=== PATIENT | female | born 1965 | race Caucasian/White ===

== ENCOUNTER → 2017-12-03 | Outpatient (CLI) | payer OTHER ==
[~2017-12-03] MED LIST: ACCUNEB SO1.25 MG/1; ADDERALL 10 MG10 MG PO; AMBIEN 5 MG TABL5 MG; APAP500 PO; BACLOFEN 10MG T10 M1 PO; BACLOFEN 10MG T10 MG; BLOOD PRESSURE MED?; CELEXA 20 MG TA20 M1; CELEXA 20 MG TA20 MG PO; CYMBALTA30 MG PO; DIAZEPAM 10 MG10 M1 PO; DILAUDID PO; DURAGESIC TRANSDERM; DURAGESIC1 EAC1 TRANSDERM; DURAGESIC1 EAC3 TRANSDERM; DURAGESIC1 EAC5 TRANSDERM; FENTANYL PA50 MCG/HR TP; FENTANYL PA50 MCG/HR TRANSDERM; FENTANYL PATCH75 MCG TOP; FENTANYL PATCH75 MCG TP; FENTANYL PATCH75 MCG TRANSDERM; Fentanyl Patch TD; GABAPENTIN PO; GABAPENTIN100 MG PO; MIRALAX255 GM PO; MOM; NEURONTIN 300300 M1 PO; NEURONTIN600 MG PO; NEURONTIN800 MG PO; NORVASC 2.5 MG2.5 M1 PO; OTHER MISCELL; OXYCODONE HCL15 MG PO; OXYCONTIN15 MG PO; OXYCONTIN40 MG PO; PAXIL20 MG PO; PERCOCET 10-321 EAC1 PO; PERCOCET 10-321 EACH PO; PERCOCET 5-3251 EACH; PERCOCET 7.5-31 EAC1 PO; PREDNISONE 10 M10 M1 PO; RELAFEN750 MG PO; ROXICODONE15 M1 PO; SKELAXIN 800 M800 M1 PO; STOOL SOFTENER1 EAC2 PO; TEGRETOL XR100 MG PO; TEGRETOL XR200 MG PO; TIZANIDINE HCL4 MG PO; Tegretol PO; VALIUM5 MG PO; WELLBUTRIN 100100 M1 PO; ZANAFLEX2 M1 PO; ZANAFLEX4 MG PO
--- NOTE | 2017-12-05 08:15 | PAINCON ---
[address] [address] PAIN MANAGEMENT CONSULTATION Name: CHERYL DOWNING [id number] Admission: 12/03/17 Attend Phys: Jenn Santana Discharge: Date of : 65 Report #: [id number] THIS REPORT FOR: //name// CC: Conor Taveras The patient is a 52-year-old female, well known to pain clinic, long treated for lumbar radiculopathy, status post decompressive laminectomy (3 total surgeries), axial back pain requiring high risk complex medication management. The patient was last seen in pain clinic 10/08/2017. He returns to pain clinic today, we had a prolonged visit, greater than 25 minutes was spent counseling the patient today. We reviewed last urine drug screen 04/23/2017, which was positive for prescribed medications. She is frustrated today, she notes any activity exacerbates pain, walking for 30 minutes, she has significant pain in her legs and feet, burning dysesthesia in the toes, neuropathic pain component with fairly classic neurogenic claudication, though she does not have any specific focal losses. No saddle anesthesia nor bowel or bladder incontinence, but simply significant neurogenic claudication that interferes with function. She notes the pain seems to be getting worse for the past 3-4 months without antecedent trauma and overuse. She has been on Celexa 20 mg for some time. We talked about rotating back to Cymbalta. Prior, there had been some cognitive impairment with this, but she has been on Celexa for some time, does have chronic increasing pain. She uses fentanyl at 50 mcg q.72 hours and Percocet 10/325 four a day, but she is down from 5 a day (with decrease in functional activity with this). Today, we spent a good deal of time talking about therapeutic options. She is frustrated with some chronic weight issues, difficulty losing weight as activity significantly exacerbates pain, BMI is 40.6 kg/m2. She does not use tobacco products. PHYSICAL EXAMINATION: Shows a 5 feet 6 inches, 252 pounds female, BMI is 40.6 kg/m2. Blood pressure is modestly elevated at 150/89, pulse is 88, respirations are 16. Rises from chair using armrest, modestly antalgic gait. She is weaker in the left leg, objectively to dorsiflexion, lower extremity extension and hip flexion. Positive straight leg raise bilaterally, though this is fairly modest. Diffuse tenderness across the low back. [place] [address] PAIN MANAGEMENT CONSULTATION Name: CHERYL DOWNING Room: [facility]#: [id number] Admission: 12/03/17 Attend Phys: Jenn Santana Discharge: Date of : 65 Report #: [id number] We reviewed the fact that opiate medications are being used to provide analgesia adequate to support activities of daily living, not attempting to achieve a specific pain score on the 0-10 Visual Analog Scale. The current opiate medications are providing sufficient analgesia to allow the patient to participate in activities of daily living. The patient is not exhibiting any aberrant behavior suggestive of drug diversion. The patient is not having any adverse reactions to medications. The patient is not suffering from daytime somnolence or mental acuity changes. The patient is managing opiate-induced constipation with appropriate vknu-faf-mmrwaem agents and dietary considerations. The patient was counseled on concern for caution with operating a motor vehicle while using opiate medications. A physical exam was performed and the patient's functional status was evaluated. All patients with back pain were advised against the bed rest greater than 4 days and were advised to return to normal activities. Pain score assessment was noted and the treatment plan was reviewed with the patient. All current medications, both prescribed and OTC were reviewed and reconciled on the electronic medical record. Tobacco screening was accomplished and smoking cessation was advised when indicated. BMI was noted and diet/exercise modification was recommended for all patients following outside normal parameters. I reviewed with the patient today their responsibilities to safeguard prescription medications, reviewed their responsibility to utilize medications only as prescribed by the physician. They are to seek and receive pain medications only from 1 physician group ( [facility]). They are to use 1 pharmacy and keep the clinic informed if they change pharmacies. Their responsibilities include making followup visits in a timely fashion and to avoid abrupt discontinuation of medication usage. Their responsibilities further include bringing their medications (bottles from the pharmacy with residual pills) to the visit for possible confirmation of pill counts and the patient understands it is their responsibility to submit to random drug screens to ensure both that the medications prescribed are present, and that no other controlled substances are present. All prescriptions provided today were generated electronically. ASSESSMENT: Symptomatic lumbar radiculopathy status post multiple decompressive laminectomies, axial back pain requiring high risk complex medication management. RECOMMENDATION: 1. We will try rotating Celexa to Cymbalta 30 mg 1 a day (Celexa 20 mg). 2. Increase Percocet back to 5 a day recognized that this is a supratherapeutic opiate load by definition in conjunction with her Duragesic 50 mcg q.48 hours. 3. We talked again about spinal cord stimulator as possible therapeutic option. [address] [place] [address] PAIN MANAGEMENT CONSULTATION Name: CHERYL DOWNING Room: [facility]#: [id number] Admission: 12/03/17 Attend Phys: Jenn Santana Discharge: Date of : 65 Report #: [id number] The patient is a little hesitant to move forward with this, states she has heard of people who have had stimulators and has read online that some folks do not find significant improvement in function. I assured her that if we did a trial, we would try and use only objective date, i.e., improvement in functional status, which tends to be associated more closely with long-term efficacy. For now, I simply made the aforementioned 2 medication changes. Discharged in good and stable condition after a 25 plus minute visit. <ELECTRONICALLY SIGNED> By: Shelton Taveras DO 12/05/17 0815 0735 [id number] Taveras DO /nt
== END ==
LOC: M.PC 02:01
DX: M54.16 Radiculopathy, lumbar region (principal); M54.89 Other dorsalgia; Z98.890 Other specified postprocedural states; Z79.899 Other long term (current) drug therapy

== ENCOUNTER → 2018-01-28 | Outpatient (CLI) | payer OTHER ==
--- NOTE | 2018-01-29 10:21 | PAINCON ---
[address] [address] PAIN MANAGEMENT CONSULTATION Name: CHERYL DOWNING Room: [facility]#: [id number] Admission: 01/28/18 Attend Phys: Jenn Santana Discharge: Date of : 65 Report #: [id number] THIS REPORT FOR: //name// CC: Conor Taveras DATE OF SERVICE: 01/28/2018 The patient is a 52-year-old female being treated for lumbar radiculopathy, status post decompressive laminectomy, neuropathic pain requiring complex medication management. Last seen in pain clinic 12/03/2017. The patient was continued on baseline medication including Duragesic 50 mcg q. 48 hours, Percocet 10/325 increased from 4 to 5 a day due to decreasing functional status when we lowered her Percocet to 4 a day. We rotated from Celebrex to Cymbalta 30 mg a day. The patient has had 3 back surgeries with ongoing radicular pain. She notes with current medication, her pain is a 4 on a VAS, pain is primarily low back, both legs with burning dysesthesia in her feet. PHYSICAL EXAMINATION: Shows 52-year-old female, moderately obese, 5 feet 6 inches, weight is 253.8 pounds, BMI is 41.3 kilograms per meter squared. Blood pressure 112/51, pulse 93, respirations 16. She rises from chair using armrest, modestly antalgic gait, diffuse tenderness across the low back. She notes if she crosses her legs, she has ongoing burning dysesthesia in her feet. We discussed spinal cord stimulator at last visit and we reviewed this option again today. Buccal drug swab at last visit was positive for prescribed medications with the caveat that it did not show fentanyl. At that time, I had noted the patient was wearing her Duragesic patch and again today, she is wearing a Duragesic patch. I have low index of suspicion that she has been diverting her agents. Today, we elected to simply continue current medication unchanged, we will repeat a buccal swab at next visit. If negative, we will get a urine screen as backup as well. We reviewed the fact that opiate medications are being used to provide analgesia adequate to support activities of daily living, not attempting to achieve a specific pain score on the 0-10 Visual Analog Scale. The current opiate medications are providing sufficient analgesia to allow the patient to participate in activities of daily living. The patient is not exhibiting any aberrant behavior suggestive of drug diversion. The patient is not having any adverse reactions to medications. The patient [place] [address] PAIN MANAGEMENT CONSULTATION Name: CHERYL DOWNING Room: [facility]#: [id number] Admission: 01/28/18 Attend Phys: Jenn Santana Discharge: Date of : 65 Report #: [id number] somnolence or mental acuity changes. The patient is managing opiate-induced constipation with appropriate ugyw-tay-xpftfik agents and dietary considerations. The patient was counseled on concern for caution with operating a motor vehicle while using opiate medications. A physical exam was performed and the patient's functional status was evaluated. All patients with back pain were advised against the bed rest greater than 4 days and were advised to return to normal activities. Pain score assessment was noted and the treatment plan was reviewed with the patient. All current medications, both prescribed and OTC were reviewed and reconciled on the electronic medical record. Tobacco screening was accomplished and smoking cessation was advised when indicated. BMI was noted and diet/exercise modification was recommended for all patients following outside normal parameters. I reviewed with the patient today their responsibilities to safeguard prescription medications, reviewed their responsibility to utilize medications only as prescribed by the physician. They are to seek and receive pain medications only from 1 physician group ( [facility]). They are to use 1 pharmacy and keep the clinic informed if they change pharmacies. Their responsibilities include making followup visits in a timely fashion and to avoid abrupt discontinuation of medication usage. Their responsibilities further include bringing their medications (bottles from the pharmacy with residual pills) to the visit for possible confirmation of pill counts and the patient understands it is their responsibility to submit to random drug screens to ensure both that the medications prescribed are present, and that no other controlled substances are present. All prescriptions provided today were generated electronically. I have taken the liberty of writing for 2 months of current medication. Discharged in good and stable condition. <ELECTRONICALLY SIGNED> By: Shelton Taveras DO 01/29/18 1021 1210 [id number] Taveras DO /nt
== END ==
LOC: M.PC 03:35
DX: M54.16 Radiculopathy, lumbar region (principal); M79.2 Neuralgia and neuritis, unspecified; Z98.890 Other specified postprocedural states; Z79.899 Other long term (current) drug therapy

== ENCOUNTER → 2018-03-25 | Outpatient (CLI) | payer OTHER ==
--- NOTE | 2018-03-26 09:37 | PAINCON ---
[facility] [address] [place] [address] PAIN MANAGEMENT CONSULTATION Name: CHERYL DOWNING Room: [facility]#: [id number] Admission: 03/25/18 Attend Phys: Jenn Santana Discharge: Date of : 65 Report #: [id number] THIS REPORT FOR: //name// CC: Conor Taveras DATE OF SERVICE: 03/25/2018 The patient is a very pleasant 52-year-old female, long known to the pain clinic, being treated for symptomatic lumbar radiculopathy, status post 3 back surgeries, neuropathic pain requiring complex medication management. Last seen in pain clinic 01/28/2018. We have weaned down to Duragesic 50 mcg q. 48 hours, Percocet 10/325 up to 4 a day. Does use co-analgesics including Tegretol 200 mg b.i.d., gabapentin 800 mg t.i.d., Adderall 10 mg b.i.d., Valium 5 mg at bedtime for muscle spasm, Cymbalta 30 mg daily for chronic pain and anxiety. She returns to pain clinic today. We had a prolonged visit, greater than 25 minutes was spent counseling the patient. She has ongoing pain, left lower extremity interferes with walking and function. Pain is in the left sciatic distribution. She is not really a surgical candidate at this point. Does have ongoing neurogenic claudication symptoms; however, that impacts function. She notes her weight has continued to increase as she is very sedentary. She relates sedentary activities simply to pain that significantly interferes with function. She rates her pain a 5 on a VAS, but notes it gets up to 7. PHYSICAL EXAMINATION: Relatively unchanged. A 5 feet 6 inches female, weight is 259 pounds. Blood pressure 145/89, pulse 97, respirations 16. Rises from chair using armrest. Antalgic gait favoring the left leg and ankle. Positive straight leg raise on the left, though strength is actually moderately preserved. Diffuse tenderness across the low back. No discrete trigger points are noted. We reviewed the fact that opiate medications are being used to provide analgesia adequate to support activities of daily living, not attempting to achieve a specific pain score on the 0-10 Visual Analog Scale. The current opiate medications are providing sufficient analgesia to allow the patient to participate in activities of daily living. The patient is not exhibiting any aberrant behavior suggestive of drug diversion. The patient is not having any adverse reactions to medications. The patient is not suffering from daytime somnolence or mental acuity changes. The patient is managing opiate-induced constipation with appropriate dooo-lni-osvcpht agents and dietary considerations. The patient was counseled on concern for caution with operating a motor vehicle while using opiate medications. A physical exam was performed and the patient's functional status was evaluated. All patients with back pain were advised against the bed rest greater than 4 days and were advised to return to normal activities. [place] [address] PAIN MANAGEMENT CONSULTATION Name: CHERYL DOWNING Room: [facility]#: [id number] Admission: 03/25/18 Attend Phys: Jenn Santana Discharge: Date of : 65 Report #: [id number] noted and the treatment plan was reviewed with the patient. All current medications, both prescribed and OTC were reviewed and reconciled on the electronic medical record. Tobacco screening was accomplished and smoking cessation was advised when indicated. BMI was noted and diet/exercise modification was recommended for all patients following outside normal parameters. I reviewed with the patient today their responsibilities to safeguard prescription medications, reviewed their responsibility to utilize medications only as prescribed by the physician. They are to seek and receive pain medications only from 1 physician group ( [facility]). They are to use 1 pharmacy and keep the clinic informed if they change pharmacies. Their responsibilities include making followup visits in a timely fashion and to avoid abrupt discontinuation of medication usage. Their responsibilities further include bringing their medications (bottles from the pharmacy with residual pills) to the visit for possible confirmation of pill counts and the patient understands it is their responsibility to submit to random drug screens to ensure both that the medications prescribed are present, and that no other controlled substances are present. All prescriptions provided today were generated electronically. We had a long discussion with the patient today about therapeutic options. At this point, I think a spinal cord stimulator is the best option to help improve function and wean the patient off of analgesics. I discussed high frequency spinal cord stimulator with the patient at length today. She is desirous of moving forward with a spinal cord stimulator trial at earliest possible date. RECOMMENDATIONS: 1. Renew current medication including Duragesic 50 mcg q. 48 hours. We will decrease Percocet from 10/325 to 7.5/325 four a day. We recognized that this is a relatively small percentage decrease in her overall opiate load, continue co-analgesics unchanged. 2. Buccal drug swab today. 3. No aberrant behavior suggestive for drug diversion, simply complying with opiate consent to treat contract. 4. The patient was given spinal cord stimulator information for high frequency Nevro stimulator. She is given contact information for psychologist as required by most third [employer] payers. Once we receive psychological evaluation, we will move forward with authorizing spinal cord stimulator trial at earliest possible date. Discharged in good and stable condition after prolonged visit today. <ELECTRONICALLY SIGNED> By: Shelton Taveras DO 03/26/18 0937 1526 [id number] Taveras DO /nt
== END ==
LOC: M.PC 04:35
DX: M54.16 Radiculopathy, lumbar region (principal); Z79.899 Other long term (current) drug therapy

== ENCOUNTER → 2018-04-22 | Outpatient (CLI) | payer OTHER ==
--- NOTE | 2018-04-23 07:50 | PAINCON ---
[address] [address] PAIN MANAGEMENT CONSULTATION Name: CHERYL DOWNING Room: [facility]#: [id number] Admission: 04/22/18 Attend Phys: Jenn Santana Discharge: Date of : 65 Report #: [id number] THIS REPORT FOR: //name// CC: Fransico Taveras The patient is a 52-year-old female, long known to pain clinic, typically treated for lumbar radiculopathy, status post decompressive laminectomy; chronic pain syndrome requiring complex medication management. The patient had 3 surgeries in short order several years ago with ongoing neuropathic pain. She has been managed with a much higher dose opiates, weaned down to Duragesic 50 mcg q.72 hours; we dropped from oxycodone 15 to Percocet 10 in the last visit from Percocet 10 to Percocet 7.5/325 four a day. Continued gabapentin 800 mg t.i.d., Cymbalta 30 mg daily, diazepam 5 mg at bedtime for spasm and anxiety along with Adderall 10 mg b.i.d. for medication-induced hypersomnolence. She returns to pain clinic today, quite frustrated, rating her pain a 4 on a VAS, but notes her functional status is significantly decreased with the last decrease in her opiate from 10 mg oxycodone to 7.5 oxycodone (Percocet 7.5/325). She has ongoing pain, paresthesia in the left foot, hyperparesthesia with a burning electric component. PHYSICAL EXAMINATION: Shows diminished strength in the left leg, hip flexion, extension and dorsiflexion, paresthesia and hyperpathia in an L4 distribution. Some hyperpathia and allodynia in the anterior zimmerman and foot. Concern for neuropathic pain component (CRPS?) and lumbar radicular symptoms status post decompressive laminectomy and concern for arachnoiditis after multiple surgeries (3) within 1 year. I discussed at last visit spinal cord stimulator as a possible therapeutic option. Again, I think this is the most likely therapeutic intervention, which may give the patient some improved functional status. She was seen for a prolonged visit today from 8:30-8:55, greater than 50% of the 25-minute visit was spent counseling the patient. We discussed spinal cord stimulator as a possible therapeutic option. Since I am leaving the practice, I will have her follow up with Dr. Adonis Taveras regarding this therapeutic modality. Today, we I did elect to return to Percocet 10/325 four a day along with her Duragesic 50 mcg q.48 hours. Last random drug screen 03/25/2018, in the last visit was positive for prescribed medications and no others. We reviewed the fact that opiate medications are being used [place] [address] PAIN MANAGEMENT CONSULTATION Name: CHERYL DOWNING Room: [facility]#: [id number] Admission: 04/22/18 Attend Phys: Jenn Santana Discharge: Date of : 65 Report #: [id number] adequate to support activities of daily living, not attempting to achieve a specific pain score on the 0-10 Visual Analog Scale. The current opiate medications are providing sufficient analgesia to allow the patient to participate in activities of daily living. The patient is not exhibiting any aberrant behavior suggestive of drug diversion. The patient is not having any adverse reactions to medications. The patient is not suffering from daytime somnolence or mental acuity changes. The patient is managing opiate-induced constipation with appropriate hicq-iii-hoogxky agents and dietary considerations. The patient was counseled on concern for caution with operating a motor vehicle while using opiate medications. A physical exam was performed and the patient's functional status was evaluated. All patients with back pain were advised against the bed rest greater than 4 days and were advised to return to normal activities. Pain score assessment was noted and the treatment plan was reviewed with the patient. All current medications, both prescribed and OTC were reviewed and reconciled on the electronic medical record. Tobacco screening was accomplished and smoking cessation was advised when indicated. BMI was noted and diet/exercise modification was recommended for all patients following outside normal parameters. I reviewed with the patient today their responsibilities to safeguard prescription medications, reviewed their responsibility to utilize medications only as prescribed by the physician. They are to seek and receive pain medications only from 1 physician group ( [facility]). They are to use 1 pharmacy and keep the clinic informed if they change pharmacies. Their responsibilities include making followup visits in a timely fashion and to avoid abrupt discontinuation of medication usage. Their responsibilities further include bringing their medications (bottles from the pharmacy with residual pills) to the visit for possible confirmation of pill counts and the patient understands it is their responsibility to submit to random drug screens to ensure both that the medications prescribed are present, and that no other controlled substances are present. All prescriptions provided today were generated electronically. Follow up in 2 months for reevaluation. We will have her follow up with Dr. Manjinder Palma or Dr. Adonis Taveras depending on availability. She understands that she would have to see Dr Ruchi Taveras @ [facility]; he would be the physician to follow up with SCS trial. <ELECTRONICALLY SIGNED> By: Shelton Taveras DO 04/23/18 0750 1437 1943[facility] Taveras DO /janett
== END ==
LOC: M.PC 03:55
DX: M54.16 Radiculopathy, lumbar region (principal); G89.4 Chronic pain syndrome; R20.2 Paresthesia of skin; Z79.899 Other long term (current) drug therapy

== ENCOUNTER → 2018-07-02 | Outpatient (CLI) | payer OTHER ==
--- NOTE | 2018-07-17 08:37 | PAINCON ---
[address] [address] PAIN MANAGEMENT CONSULTATION Name: CHERYL DOWNING [id number] Admission: 07/02/18 Attend Phys: Gee Palma MD Discharge: Date of : 65 Report #: [id number] THIS REPORT FOR: //name// CC: Fransico Palma DATE OF SERVICE: 07/02/2018 CHIEF COMPLAINT: Low back, leg and foot pain. HISTORY OF PRESENT ILLNESS: The patient is a 52-year-old female who has been followed in the pain clinic since [address] Shelton Taveras. This is my first visit with the patient. She has returned to the Pain Clinic for renewal of her medications. She finds that fentanyl is helpful as well as Percocet for breakthrough pain. She has undergone epidural steroid injections for sympathetic lumbar radiculopathy in the past. She is also status post decompression with laminectomy and fusion. Her pain continues to be quite problematic. She has considered the options of dorsal column stimulation. At this juncture, her 's health has declined. Economically, she does not feel that she is able to go forward with a trial and placement of an epidural over the spinal cord stimulator. She rates her pain as 4/10 at this juncture. ALLERGIES: PENICILLIN. CURRENT MEDICATIONS: Tylenol Extra Strength 2 tablets, albuterol 2 puffs p.r.n., Adderall 10 mg b.i.d., Tegretol-XR 200 mg b.i.d., Celexa 20 mg, Valium 5 mg p.r.n. spasms, Cymbalta 30 mg, fentanyl patch 50 mcg q. 48 hours, Neurontin 800 mg q. 8 hours, oxycodone 10/325 one p.o. q. 4 hours. PAST MEDICAL HISTORY: Asthma, joint disease/arthritis, hypertension. PAST SURGICAL HISTORY: Cholecystectomy, appendectomy, tonsils and adenoids, back surgery in 2010 and ankle surgery. LABORATORY DATA: No new values are available at the time of her interview. PAIN CLINIC ASSESSMENT: 1. The patient does have some arthritic changes in the lower portion of her back and is status post surgery for back pain. 2. Height 5 feet 6 inches, weight 254 pounds, BMI is 41. 3. Vital Signs: Blood pressure 152/106, heart rate 93, respiratory rate 16, room air saturation is 98%, temperature 98.5. 4. Pain intensity: 4/10. 5. Fall risk. The patient has not fallen in the last 3 months. 6. Blood thinning medication. The patient is not on a blood thinner. 7. History of hypertension. The patient is not being [place] [address] PAIN MANAGEMENT CONSULTATION Name: CHERYL DOWNING Rajani Room: [facility]#: [id number] Admission: 07/02/18 Attend Phys: Gee Palma MD Discharge: Date of : 65 Report #: [id number] 8. Opioid therapy. The patient received her opioid medications from one source, the Pain Clinic. 9. Risk assessment tool. 10. Functional assessment tool. 11. Recreational drug use. The patient denies use of recreational drugs. 12. Tobacco: The patient denies use of tobacco. 13. Alcohol: The patient denies use of alcohol. PHYSICAL EXAMINATION: GENERAL: The patient is a well-developed white female. Slightly she is obese. Alert and oriented x 3. Affect is appropriate. Speech is fluent. HEENT: Normocephalic, atraumatic. Extraocular eye muscles intact. Sclerae nonicteric. Mucous membranes are moist. Hearing is within normal limits. NECK: Without adenopathy or JVD. Upper extremity muscle strength is judged to be 5/5 for the major muscle groups in the upper extremity. HEART: Regular rate. ABDOMEN: Protuberant without pain, low back area. The patient complains of pain and discomfort in the lower portion of her back with pain radiating down into her left sciatic area. States that she finds that sometimes difficult to stand notes that walking, standing, climbing stairs, lifting and bending are problematic. IMPRESSION: 1. History of lumbar radiculopathy, status post decompression laminectomy and fusion. 2. Hypertension. 3. Asthma. RECOMMENDATIONS: We discussed treatment options with the patient. The patient states that she had had a conversation with Nitin in regards to possibility of moving forward with a spinal cord stimulator. At this juncture, her has been found to have lupus. This is her current major problem. States that she will have to wait till a future date to consider spinal cord stimulation. At this juncture, she would like to just continue with her current medications. She would like to have them refilled. She is having no complications with them. She is aware that opioids are in the news and media. Keeps her medications in a guarded area. She is aware that addiction and can occur as well as decreased effectiveness of these medications as a result of tolerance. A script for her medications have been rewritten. She will follow up in the near future. Hopefully, her continues to improve in his health. We would like to thank you for letting us participate in her care. We hope she continues to improve. <ELECTRONICALLY SIGNED> By: Gee Palma MD 07/17/18 0837 [id number]. Manjinder Palma MD /nt
== END ==
LOC: M.PC 02:14
DX: M54.16 Radiculopathy, lumbar region (principal); I10 Essential (primary) hypertension; J45.909 Unspecified asthma, uncomplicated

== ENCOUNTER → 2018-08-27 | Outpatient (CLI) | payer OTHER ==
--- NOTE | 2018-09-14 10:00 | PAINCON ---
[address] [address] PAIN MANAGEMENT CONSULTATION Name: CHERYL DOWNING [facility] [id number] Admission: 08/27/18 Attend Phys: Gee Palma MD Discharge: Date of : 65 Report #: [id number] THIS REPORT FOR: //name// CC: Fransico Palma DATE OF SERVICE: 08/27/2018 FOLLOWUP HISTORY: Here for medication renewal. FOLLOWUP: The patient is a 52-year-old female who has been followed in the pain clinic. She has low back pain and has left leg pain. She states that she continues to have some sciatic nerve irritation symptomatology. Notes pain that radiates down into her left leg. Crossing her left leg at the ankles can exacerbate pain and cause pain to radiate down into the L5-S1 distribution on the left side. She has found that her current medication seems to work reasonably well. She has undergone epidural steroid injections in the past. She has undergone laminectomy with fusion. In spite of these past treatments she continues to have pain and discomfort. She had been given the opportunity to consider a dorsal column stimulator. She has declined that procedure at this juncture. She rates her pain as 6/10 today, it usually is about 4. ALLERGIES: PENICILLIN. MEDICATIONS: Tylenol Extra Strength 2 tablets, albuterol puffs 2 p.r.n., Adderall 10 mg b.i.d., Tegretol-XR 200 mg b.i.d., Celexa 20 mg, Valium 5 mg p.r.n. spasms, Cymbalta 30 mg, fentanyl patch 50 mcg q.48 hours, Neurontin 800 mg t.i.d., oxycodone 10/325 one p.o. q. 4 hours p.r.n. PAIN CLINIC ASSESSMENT/PQR: 1. The patient is not being treated for osteoarthritis or rheumatoid arthritis. 2. Height 5 feet 6 inches, weight 256 pounds and BMI is 41. 3. Vital signs: Blood pressure 151/92, heart rate 88, respiratory rate 16, room air saturation is 98%, temperature is 98.2 and pain score 6/10, usually in 4. 4. Fall risk: The patient has not fallen in the last 3 months. 5. Blood thinner. The patient is not on blood thinning medication. 6. Hypertension. The patient has not been treated for hypertension. 7. Opioid therapy greater than 6 weeks. The patient has receiving her opioid medication to one source is the pain clinic. 8. Risk assessment tool. 9. Functional assessment tool. 10. Recurrent recreational drug use. The patient denies use of recreational drugs. 11. Tobacco: The patient denies use of tobacco. 12. Alcohol: The [place] [address] PAIN MANAGEMENT CONSULTATION Name: CHERYL DOWNING Room: [facility]#: [id number] Admission: 08/27/18 Attend Phys: Gee Palma MD Discharge: Date of : 65 Report #: [id number] PHYSICAL EXAMINATION: GENERAL: The patient is a well-developed, well-nourished white female, appears her stated age. She is alert and oriented x 3. Affect is appropriate. She is slightly obese. Speech is fluent. HEENT: Normocephalic, atraumatic. Extraocular eye muscles intact. Sclerae nonicteric. Mucous membranes are moist. Hearing is within normal limits. NECK: Without adenopathy or JVD. Upper extremity muscle strength is judged to be 5/5 for the major muscle groups. HEART: Regular rate. S1, S2. LUNGS: Clear to auscultation without rales or rhonchi. ABDOMEN: Protuberant without pain. Bowel sounds positive. The patient has pain and discomfort with crossing her left leg over the right leg with pain radiating down the L5-S1 nerve dermatomal distribution. She notes some increased pain with walking, standing, climbing stairs, lifting and bending. She also has some pain in her feet bilaterally. IMPRESSION: 1. History of lumbar radiculopathy, status post decompression laminectomy with fusion. 2. Hypertension. 3. Asthma. RECOMMENDATIONS: We discussed treatment options with the patient. We will continue with her current medical regimen. She feels that her medications are helpful. She is not having any side effects. She is able to think clearly. She feels that her medications and able to engage in activities of daily living, she would not be able to without them. Notes greater than 50% improvement with use of these medications. The patient does not have any problems with the medications. She is aware that opioid medications can cause dependence. She is aware that chronic use of medication for prolonged period of time can cause decreased efficacy from the medication secondary to tolerance. States she keeps her medication in a guarded area. She will follow up in the future as needed. We would like to thank you for letting us participate in her care. We hope she continues to improve. <ELECTRONICALLY SIGNED> By: Gee Palma MD 09/14/18 [id number]. Manjinder Palma MD /nt
== END ==
LOC: M.PC 06-16 03:28
DX: M54.16 Radiculopathy, lumbar region (principal); I10 Essential (primary) hypertension; J45.909 Unspecified asthma, uncomplicated; Z79.899 Other long term (current) drug therapy

== ENCOUNTER → 2018-10-20 | Outpatient (CLI) | payer OTHER ==
--- NOTE | ~2018-10-20 | PAINCON ---
[address] [address] PAIN MANAGEMENT CONSULTATION Name: CHERYL DOWNING Room: [facility]#: [id number] Admission: 10/20/18 Attend Phys: Gee Palma MD Discharge: Date of : 65 Report #: [id number] THIS REPORT FOR: //name// CC: Fransico Palma DATE OF SERVICE: 10/20/2018 HISTORY: Low back pain, here for medications. HISTORY OF PRESENT ILLNESS: The patient is a 52-year-old female who has been followed in the pain clinic because of chronic pain involving her low back and her legs. States that she has continued to have some pain and discomfort in the area of the sciatic nerve with irritation. Notes that she is having pain and discomfort, which is radiating down into her legs. Pain has been exacerbate were exacerbated by activity. She has been cleaning and raking her yard. As a result of this, she has noticed an increase in her pain and discomfort and rates it as a 7/10. Notes pain in her calf muscles. She is experiencing muscle spasms as well. As you recall, she has undergone laminectomy with fusion. She has been given the opportunity to consider a dorsal column stimulator. She has declined the procedure at this juncture. Rates her pain as 7 oftentimes and it is usually at about the level of 4. She also noted change in the pain because of the weather. The weather has changed. It is about 24 degrees in the morning. This has had some effect on her joint pain and discomfort as well. ALLERGIES: PENICILLIN. MEDICATIONS: Tylenol Extra Strength 2 tablets, albuterol 2 puffs p.r.n., Adderall 10 mg b.i.d., Tegretol XR 200 mg b.i.d., Celexa 20 mg, Valium 5 mg p.r.n. spasms, Cymbalta 30 mg, fentanyl patch 50 mcg q. 48 hours, Neurontin 800 mg t.i.d., oxycodone 10/325 one p.o. q. 4 hours p.r.n. PAIN CLINIC ASSESSMENT/PQRS: The patient is not being treated for osteoarthritis or rheumatoid arthritis. 1. Height 5 feet 6 inches, weight 256 pounds, BMI is 41. 2. Vital signs: Blood pressure 138/93, heart rate 96, respiratory rate 16, room air saturation 96%, temperature 97.5. 3. Pain intensity 10. 4. Fall risk. The patient has not fallen in the last 3 months. 5. Blood thinner. The patient is not on a blood thinning medication. 6. Hypertension. The patient is not being treated for hypertension. 7. Opioids greater than 6 weeks. The patient receives her medications from one source, the Pain Clinic. 8. Risk assessment tool, low for opioid use. 9. Functional assessment tool. 10. Recreational drug use: [place] [address] PAIN MANAGEMENT CONSULTATION Name: VICTOR HUGO DOWNINGIRIS eGrard Room: [facility]#: [id number] Admission: 10/20/18 Attend Phys: Gee Palma MD Discharge: Date of : 65 Report #: [id number] 11. Tobacco: The patient denies use of alcoholic beverages. PHYSICAL EXAMINATION: GENERAL: The patient is a well-developed, well-nourished white female. Appears her stated age. She is alert and oriented x 3. She does seem somewhat disappointed because of her continued pain and discomfort. She is obese. Speech is fluent. HEENT: Normocephalic, atraumatic. Extraocular muscles intact. Sclerae nonicteric. Mucous membranes are moist. Hearing is within normal limits. NECK: Without adenopathy or JVD. Upper extremity muscle strength is judged to be 5/5 for the major muscle groups. HEART: Regular rate. S1, S2. LUNGS: Clear to auscultation without rhonchi or rales. ABDOMEN: Protuberant without pain. Bowel sounds present. The patient has some pain and discomfort in the lower portion of her back with pain radiating down into her left leg as well as in the right leg in the L5-S1 dermatomal distribution. Notes some increased pain with walking, standing, climbing, lifting, bending and had pain in her feet bilaterally with some complaints of muscle spasm. IMPRESSION: 1. History of lumbar radiculopathy status post decompressive laminectomy with fusion. 2. Offered dorsal column stimulator. 3. Hypertension. 4. Asthma. RECOMMENDATIONS: We discussed treatment with the patient. We will continue with her current medications. She feels that her medications are helpful. Continues to have some pain in her back yesterday while doing yard work. Notes some difficulty walking, some weakness, some cramping which have become more frequent. The weather has changed and has caused some problems. Overall, she is about 40% improved with use of her medication at this point. She feels that the medications are still beneficial and would like to continue with their use. She is aware that opioid medications can cause addiction as well as become less effective over time as a result of tolerance. She is aware that 72,000 people last year as a result of use of overdose of medications. A 500,000 people have in the year 1999. She keeps her medications in a guarded area. She would like to continue with her medications. She finds that they are overall helpful. We would like to thank you for letting us participate in her care. We hope she continues to improve. By: [id number]. Manjinder Palma MD /nt
== END ==
LOC: M.PC 04:50
DX: M54.16 Radiculopathy, lumbar region (principal); I10 Essential (primary) hypertension; J45.909 Unspecified asthma, uncomplicated; Z98.1 Arthrodesis status

== ENCOUNTER → 2018-12-15 | Outpatient (CLI) | payer OTHER ==
--- NOTE | ~2018-12-15 | PAINCON ---
[address] [address] PAIN MANAGEMENT CONSULTATION Name: CHERYL DOWNING Room: [facility]#: [id number] Admission: 12/15/18 Attend Phys: Gee Palma MD Discharge: Date of : 65 Report #: [id number] THIS REPORT FOR: //name// CC: Fransico Palma DATE OF SERVICE: 12/15/2018 CHIEF COMPLAINT: Here for medication renewal. FOLLOWUP HISTORY: The patient is a 53-year-old female who has been followed in the Pain Clinic. She suffers from chronic pain involving her low back. She has had low back pain for years. She has had no new changes at this juncture. She does note that the changes in the weather, which has become cold, have affected her pain. She feels that cold, walking, sitting, standing, climbing stairs, lifting and bending are problematic. She does try a number of modalities to help with the pain, which include medications, heat, cold and rest. She continues to have pain in the area of her sciatic nerve, radiates down into both legs. She continues to have some muscle spasms. As you may recall, she has undergone a laminectomy and has had a fusion in her back. Consideration has been extended to her for a dorsal column stimulator; at this juncture, she declines. ALLERGIES: PENICILLIN. CURRENT MEDICATIONS: Tylenol Extra Strength 2 tablets, albuterol 2 puffs p.r.n., Adderall 10 mg b.i.d., Tegretol-XR 200 mg b.i.d., Celexa 20 mg, Valium 5 mg for spasms, Cymbalta 30 mg, fentanyl patch 50 mcg q. 48 hours, Neurontin 800 mg t.i.d., oxycodone 10/325 one p.o. q. 4 hours p.r.n. PAIN CLINIC ASSESSMENT AND PQRS: 1. The patient is not being treated for osteoarthritis or rheumatoid arthritis. 2. Height 5 feet 6 inches, weight 259 pounds, BMI is 42. 3. Vital signs: Blood pressure 147/96, heart rate 93, respiratory rate 16, room air saturation 95%, temperature 98.0. 4. Pain intensity: 4/10. 5. Fall history: The patient has not fallen in the last 3 months. 6. Blood thinner: The patient is not on a blood thinning medication. 7. Hypertension: The patient is not being treated for hypertension. 8. Opioids greater than 6 weeks: The patient receives her medications from one source from the Pain Clinic. 9. Risk assessment tool: Low for opioid use. 10. Functional assessment tool. 11. Recreational drug use: The patient denies use of recreational drugs. 12. Tobacco: The patient denies use [place] [address] PAIN MANAGEMENT CONSULTATION Name: CHERYL DOWNING Room: [facility]#: [id number] Admission: 12/15/18 Attend Phys: Gee Palma MD Discharge: Date of : 65 Report #: [id number] PHYSICAL EXAMINATION: GENERAL: The patient is a well-developed, well-nourished, white female. She appears her stated age. She is alert and oriented x 3. She is slightly obese. Speech is fluent. HEENT: Normocephalic, atraumatic. Extraocular eye muscles intact. Sclerae nonicteric. Mucous membranes are moist. Hearing is within normal limits. NECK: Without adenopathy or JVD. HEART: Regular rate, S1 and S2. LUNGS: Clear to auscultation without rhonchi or rales. ABDOMEN: Protuberant without pain. Bowel sounds present. MUSCULOSKELETAL: Upper extremity muscle strength is judged to be 5/5 for the major muscle groups. Some pain in the lower portion of her back, which radiates down into her left leg as well as into the right leg at the L5 dermatomal distribution. She complains of some muscle spasms. IMPRESSION: 1. History of lumbar radiculopathy, status post decompressive laminectomy with fusion. Offer remains for consideration of a dorsal column stimulator. 2. Hypertension. 3. Asthma. RECOMMENDATIONS: We discussed treatment options with the patient. The risk and benefits of opioid use were discussed. Possible addiction associated with opioid/narcotic use was discussed. We explained to the patient that effectiveness of opioids can start to wane over a period of time secondary to tolerance. Overall, she feels that things are going reasonably well and would like to continue with her medications. A script for her medications has been rewritten. We would like to thank you for letting us participate in her care. We hope she continues to improve. By: [id number]. Manjinder Palma MD /janett
== END ==
LOC: M.PC 08:00
DX: M54.16 Radiculopathy, lumbar region (principal); J45.909 Unspecified asthma, uncomplicated; I10 Essential (primary) hypertension; Z79.899 Other long term (current) drug therapy

== ENCOUNTER → 2019-02-09 | Outpatient (CLI) | payer OTHER ==
--- NOTE | ~2019-02-09 | PAINCON ---
[address] [address] PAIN MANAGEMENT CONSULTATION Name: CHERYL DOWNING [id number] Admission: 02/09/19 Attend Phys: Gee Palma MD Discharge: Date of : 65 Report #: [id number] THIS REPORT FOR: //name// CC: Fransico Palma DATE OF SERVICE: 02/09/2019 CHIEF COMPLAINT: Here for medication renewal. HISTORY: The patient is a 53-year-old female who has been followed in the Pain Clinic. As you recall, she suffers from chronic back pain. She has had three back surgeries. She has had back pain for a number of years. At this juncture, she feels that her medications are helpful. It was warm her yesterday. She elected to do some activities out in the yard. Has noticed an increase in her back pain. Rates it as a 5/10. It usually is about 4/10. Denied any complications. Has not fallen since we saw her last. Feels that her medications are working reasonably well. She has returned today with a desire to have her medication renewal. Has pain in the sciatic nerve area and it radiates down into both legs. Has problems with muscle spasms. She has considered the possibility of a dorsal column stimulator in the future. Has declined at this juncture. ALLERGIES: PENICILLIN. CURRENT MEDICATIONS: Tylenol Extra Strength 2 tablets, albuterol 2 puffs p.r.n., Adderall 10 mg b.i.d., Tegretol XR 200 mg b.i.d., Celexa 20 mg, Valium 5 mg for spasms, Cymbalta 30 mg, fentanyl patches 50 mcg q. 48 hours, Neurontin 800 mg t.i.d., oxycodone 10 mg q.4 hours p.r.n. PAIN CLINIC ASSESSMENT/PQRS: 1. The patient is not being treated for osteoarthritis or rheumatoid arthritis. Has some back surgeries. 2. Height 5 feet 6 inches, weight 261 pounds, BMI is 42. 3. Vital signs: Blood pressure 139/84, heart rate 95, respiratory rate 18, room air saturation 98.3. Pain intensity 5/10. 4. Fall history: The patient has not fallen in the last 3 months. 5. Blood thinner. The patient is not on a blood thinning medication. 6. Hypertension. The patient has not been treated for hypertension. 7. Opioid greater than 6 weeks. The patient receives her medication from [facility]. 8. Risk assessment tool, low for opioid use. 9. Functional assessment tool. 10. Recreational drug use. The patient denies use of recreational drugs. 11. Tobacco: 12. Alcohol: The patient denies [place] [address] PAIN MANAGEMENT CONSULTATION Name: CHERYL DOWNING Room: [facility]#: [id number] Admission: 02/09/19 Attend Phys: Gee Palma MD Discharge: Date of : 65 Report #: [id number] PHYSICAL EXAMINATION: GENERAL: The patient is a well-developed, well-nourished, somewhat obese white female. Appears her stated age. She is alert and oriented x 3. Her affect is appropriate. Speech is fluent. HEENT: Normocephalic, atraumatic. Extraocular eye muscles intact. Sclerae not icteric. Mucous membranes are moist. NECK: Without adenopathy or JVD. HEART: Regular rate. S1, S2. LUNGS: Clear to auscultation without rhonchi or rales. ABDOMEN: Nontender, protuberant. Bowel sounds present. MUSCULOSKELETAL: Upper extremity strength is 5/5 for the major muscle groups. The patient has pain and discomfort in lower portion of her back with pain that radiates down into both legs at the L5-S1 dermatomal distribution with spasms. IMPRESSION: 1. History of lumbar radiculopathy, status post decompression and fusion. Has had 3 three back surgeries. 2. Consideration for dorsal column stimulation. 3. Hypertension. 4. Asthma. RECOMMENDATIONS: We discussed treatment options with the patient. We explained the need to comply with the CDC's recommendation with morphine equivalents. At this juncture, the patient is a 180 morphine equivalents. We will start to decrease her morphine equivalents at the next visit. We would like to thank you for letting us participate in her care. A script for her medications has been written for Percocet 10/325 one p.o. total of 120, Adderall 10 mg b.i.d., Duragesic 50 mcg q.48 hours, Valium 5 mg. The patient will call us if she has any concerns. We would like to thank you for letting us participate in her care. We hope she continues to improve. By: [id number]. Manjinder Palma MD /janett
== END ==
LOC: M.PC 04:59
DX: M54.16 Radiculopathy, lumbar region (principal); I10 Essential (primary) hypertension; J45.909 Unspecified asthma, uncomplicated; Z88.0 Allergy status to penicillin; Z79.899 Other long term (current) drug therapy

== ENCOUNTER → 2019-04-06 | Outpatient (CLI) | payer OTHER ==
--- NOTE | ~2019-04-06 | PAINCON ---
[address] [address] PAIN MANAGEMENT CONSULTATION Name: CHERYL DOWNING Room: [facility] Ball#: [id number] Admission: 04/06/19 Attend Phys: Gee Palma MD Discharge: Date of : 65 Report #: [id number] THIS REPORT FOR: //name// CC: Fransico Palma DATE OF SERVICE: 04/06/2019 CHIEF COMPLAINT: Here for medications, noted some increased pain and work out in the yard. HISTORY: The patient is a 53-year-old female who has been followed in the pain clinic because of chronic pain. She has had three back surgeries. Continues to have back pain, which radiates down into her leg. She has noted some pain and discomfort in the inner thigh area. Noted some cramping sensation. She is not sure exactly what the cause of that is. She does not think that is necessarily secondary to nerves in her back. She seems to be feeling more pain in her feet. Has some numbness and tingling. Has noted on the right foot some changes in her toe. Has somewhat of a hammertoe beginning. She has had plantar fasciitis in the past. She has been working in her yard. She is still not keen on a dorsal column stimulator. States that she has had three surgeries in the past. At this juncture, she is not looking forward to another surgery. Feels that her medications are helpful, but still lacking. She has had no complications with her medications. ALLERGIES: PENICILLIN. CURRENT MEDICATIONS: Tylenol Extra Strength 2 tablets, albuterol 2 puffs p.r.n., Adderall 10 mg b.i.d., Tegretol-XR 200 mg b.i.d., Celexa 20 mg, Valium 5 mg for spasms, Cymbalta 30 mg, fentanyl patches 50 mcg every 48 hours, Neurontin 800 mg t.i.d., oxycodone 10 mg q.4 hours. PAIN CLINIC ASSESSMENT/PQRS: 1. The patient is not being treated for osteoarthritis or rheumatoid arthritis. Has had back surgeries on 3 occasions. 2. Height 5 feet 6 inches, weight 260 pounds, BMI is 42.2. 3. Vital signs: Blood pressure 123/48, heart rate 93, respiratory rate 16, room air saturation 93%, temperature 98.2. Pain intensity 6/10. 4. Fall history: The patient has not fallen in the last 3 months. 5. Blood thinner, the patient is not on a blood thinning medication. 6. Hypertension. The patient is not being treated for hypertension. 7. Opioids greater than 6 weeks. The patient received her medication from [facility], the pain clinic. 8. Risk assessment tool of her opioid use. 9. Functional assessment tool. 10. Recreational drug use. The patient [place] [address] PAIN MANAGEMENT CONSULTATION Name: DOWNINGCHERYLIRIS MERINO Room: [facility]#: [id number] Admission: 04/06/19 Attend Phys: Gee Palma MD Discharge: Date of : 65 Report #: [id number] 11. Tobacco: The patient denies use of tobacco. 12. Alcohol: The patient denies frequent use of alcoholic beverages. PHYSICAL EXAMINATION: GENERAL: The patient is a well-developed, well-nourished, somewhat obese white female, appears her stated age. She is alert and oriented x 3. Her is present. HEENT: Normocephalic, atraumatic. Extraocular eye muscles intact. Sclerae nonicteric. Mucous membranes moist. NECK: Without adenopathy or JVD. HEART: Regular rate. S1, S2. LUNGS: Clear to auscultation without rhonchi or rales. ABDOMEN: Protuberant. Bowel sounds present. The patient without significant scoliosis, kyphosis, or lordosis. The patient has some pain and discomfort down into her low back area. Has pain in her feet. Notes some changes with development of a hammertoe in her toes. Has pain on the dorsum of her feet. Has had pain in the plantar area of her feet with plantar fasciitis. IMPRESSION: 1. History of lumbar radiculopathy, status post decompression and fusion. Has had 3 back surgeries. 2. Consideration for dorsal column. At this juncture, the patient continues to decline another surgical intervention. 3. Hypertension. 4. Asthma. RECOMMENDATIONS: We discussed the treatment options with the patient. Risks and benefits of use of opioid medication have been discussed. We explained to the patient the ____ requirements for opioid medications. The patient is at a level of about 180. We have explained to her with the need to decrease her medications over a period of time. At this juncture, we will decrease her OxyContin by 10 mg. She will continue with her medications. A script for her medications have been rewritten. She will call us if she has any concerns. We would like to thank you for letting us participate in her care. We hope she continues to improve. By: [id number]. Manjinder Palma MD /nt
== END ==
LOC: M.PC 04:37
DX: M54.16 Radiculopathy, lumbar region (principal); G89.29 Other chronic pain; M43.26 Fusion of spine, lumbar region; I10 Essential (primary) hypertension; J45.909 Unspecified asthma, uncomplicated; Z79.899 Other long term (current) drug therapy; Z98.890 Other specified postprocedural states

== ENCOUNTER → 2019-06-01 | Outpatient (CLI) | payer OTHER ==
--- NOTE | 2019-06-02 14:27 | PAINCON ---
[address] [address] PAIN MANAGEMENT CONSULTATION Name: CHERYL DOWNING Room: [facility] Quinn#: [id number] Admission: 06/01/19 Attend Phys: Gee Palma MD Discharge: Date of : 65 Report #: [id number] THIS REPORT FOR: //name// CC: Fransico Palma DATE OF SERVICE: 06/01/2019 CHIEF COMPLAINT: Here for medications. Feel the medicines are still helping. FOLLOWUP HISTORY: The patient is a 53-year-old female who has been followed in the Pain Clinic. As you recall, she has had three back surgeries. Continues to have back pain. Notes that when she does have pain that radiates down into her legs. Notes that with activities, walking, sitting, bending, standing, climbing stairs, her pain can be more problematic. Feels that her medications in addition to use of heat and cold are helpful. Has rates her pain as a 4/10 today. It can increase to 6-7 during the course of the day as more activities engaged in. She has seen a physician in regard to her left foot. States that she has had an injection in the left foot in the area of her great toe and second toe that seems to have helped some pain. She has had some problems with plantar fasciitis. She does have a Garden. States that she was picking some items this morning. She has had no complications with her medications. She was started on Cymbalta. She feels that that medication has provided some benefit. She is not sure, but feels that there might be some sensation of shortness of breath. She has been on it for a month. She states that she will continue with it for a while and see whether or not that is the etiology of her shortness of breath. Does find that the Tegretol medication sometimes can make her somewhat sleepy. She is taking it less frequent. ALLERGIES: PENICILLIN. CURRENT MEDICATIONS: Tylenol Extra Strength 2 tablets, albuterol 2 puffs p.r.n., Adderall 10 mg b.i.d., Tegretol-XR 200 mg b.i.d., Celexa 20 mg, Valium 5 mg for spasms, Cymbalta 30 mg, fentanyl patches 50 mcg q. 8 hours, Neurontin 800 mg t.i.d., oxycodone 10 mg q.4 hours. PAIN CLINIC ASSESSMENT/PQRS: 1. The patient is not being treated for osteoarthritis or rheumatoid arthritis. She has had three back surgeries. 2. Height 5 feet 6 inches, weight 254 pounds, BMI 41. 3. Vital Signs: Blood pressure 142/43, heart rate 83, respiratory rate 16, room air saturation 94%, temperature 98%. 4. Pain intensity 10. 5. Fall history: The patient has not fallen in the last 3 months. 6. Blood thinner. The patient is not on a [place] [address] PAIN MANAGEMENT CONSULTATION Name: CHERYL DOWNING Room: [facility]#: [id number] Admission: 06/01/19 Attend Phys: Gee Palma MD Discharge: Date of : 65 Report #: [id number] 7. Hypertension. The patient is not being treated for hypertension. 8. Opioids. The patient receives her medication from [facility], the [facility]. 9. Risk assessment tool, low for opioid use. 10. Functional assessment tool. 11. Recreational drug use: The patient denies. 12. Tobacco: The patient denies use of tobacco. 13. Alcohol: The patient denies use of alcoholic beverages. PHYSICAL EXAMINATION: GENERAL: The patient is a well-developed, well-nourished white female. She is somewhat obese. She is alert and oriented x 3. Her affect is appropriate. Speech is fluent. HEENT: Normocephalic, atraumatic. Extraocular eye muscles intact. Sclerae nonicteric. Mucous membranes are moist. NECK: Without adenopathy or JVD. LUNGS: Generally clear to auscultation without rhonchi or rales. ABDOMEN: Protuberant. Bowel sounds present. The patient was without scoliosis, kyphosis or lordosis. Has some discomfort in the lower portion of her back. Notes that there is some pain that radiates down into her feet. Notes some improvement in the left foot after the injection by her physician or her doctor and has noticed development of hammertoes. Has some pain on the dorsum of her foot as well as on the plantar portion of her feet secondary to plantar fasciitis type discomfort. IMPRESSION: 1. History of lumbar radiculopathy status post decompressive fusion with three back surgeries. 2. Dorsal column stimulation has been considered in the past, but the patient declined at this juncture. 3. Hypertension. 4. Asthma. RECOMMENDATIONS: We discussed treatment option with the patient. At this juncture, we will continue with her medications. She feels that her medications are helpful. A script for the fentanyl medication has been renewed. She states she is taking as prescribed. Also, the patient continues with oxycodone 10 mg q.i.d. She feels that the Valium medication is helpful at bedtime and that the gabapentin medication is helpful as well without any side effects. She feels that the opioid medications, which she is on is helpful. Keeps her medications in a guarded area. She is aware that opioid medications can be problematic in some patients. She feels that her medications are working well. They enable her to engage in activity. She would not be able to without their use. She has had no complications, such as withdrawal. Does not feel that she has an addiction using this medication. Keeps it in a guarded area. We will continue with her medications. A script for her medications [place] [address] PAIN MANAGEMENT CONSULTATION Name: DOWNINGCHERYL Room: [facility]#: [id number] Admission: 06/01/19 Attend Phys: Gee Palma MD Discharge: Date of : 65 Report #: [id number] will continue with oxycodone 10/325 one p.o. 3 times daily, fentanyl patches 50 mcg 1 p.o. q. 48 hours, frequency, Adderall 10 mg b.i.d., total of 60 tablets, Tegretol-XR 200 mg b.i.d., Celexa 20 mg daily, and Zanaflex for muscle spasms. <ELECTRONICALLY SIGNED> By: Gee Palma MD 06/02/19 1427 [id number]. Manjinder Palma MD /janett
== END ==
LOC: M.PC 05:10
DX: M54.5 Low back pain (principal); I10 Essential (primary) hypertension; J45.909 Unspecified asthma, uncomplicated; Z79.899 Other long term (current) drug therapy

== ENCOUNTER → 2019-07-27 | Outpatient (CLI) | payer OTHER ==
--- NOTE | ~2019-07-27 | PAINCON ---
[address] [address] PAIN MANAGEMENT CONSULTATION Name: CHERYL DOWNING Room: [facility] Quinn#: [id number] Admission: 07/27/19 Attend Phys: Gee Palma MD Discharge: Date of : 65 Report #: [id number] THIS REPORT FOR: //name// CC: Fransico Palma DATE OF SERVICE: 07/27/2019 CHIEF COMPLAINT: "Here for low back pain and I have arthritis in both feet." HISTORY: The patient is a 53-year-old female who has been followed in the pain clinic because of chronic pain. She has been seen in the pain clinic over a number of years. Feels that her medications continue to be beneficial. As you may recall, she has had three back surgeries. Back pain continues to be problematic. Pain radiates down into her legs. She has also noticed some arthritic pain and discomfort in both feet. There is a burning sensation down in her feet. She has been seen in the past by a aerobics instructor. She has undergone some steroid shots. It was felt that those were beneficial. Rates her pain today as a 6/10. Notes factors that continue to be problematic are walking, sitting, standing, climbing stairs as well as changes in temperature. She has had plantar fasciitis. Feels that her current medical regimen is continuing to be helpful. ALLERGIES: PENICILLIN. CURRENT MEDICATIONS: Tylenol Extra Strength 500 mg q. 6 hours p.r.n., albuterol 2 puffs q. 4 hours, Adderall 10 mg b.i.d., Tegretol-XR 200 mg b.i.d., Celexa 20 mg, diazepam 5 mg at bedtime, fentanyl patch 50 mcg transdermal q. 72 hours, Neurontin 800 mg q. 8 hours, oxycodone 10 mg 1 p.o. q. 4-6 hours, MiraLax 255 grams, 17 grams dosing stool softeners sennosides/docusate, Zanaflex 4 mg, Celebrex 200 mg. PAIN CLINIC ASSESSMENT AND PQRS: 1. The patient is not being treated for osteoarthritis or rheumatoid arthritis. Has had 3 back surgeries. Has had foot pain and plantar fasciitis. 2. Vital signs: Blood pressure 151/88, heart rate 95, respiratory rate 18, room air saturation is 98%, temperature 98.2, height 5 feet 6 inches, weight 255 pounds, BMI is 41. 3. Fall history: The patient has not fallen in the last 3 months. 4. Blood thinner. The patient is not on a blood thinning medication. 5. Hypertension. The patient is not being treated for hypertension. 6. Opioids. The patient receives medication from [facility] pain clinic. 7. Risk assessment tool, low for opioid use. 8. Functional assessment tool. 9. Recreational drug use. The patient denies. 10. Tobacco: The [place] [address] PAIN MANAGEMENT CONSULTATION Name: DOWNINGCHERYLIRIS MERINO Room: [facility] Ball#: [id number] Admission: 07/27/19 Attend Phys: Gee Palma MD Discharge: Date of : 65 Report #: [id number] 11. Alcohol. The patient denies use of alcoholic beverages. PHYSICAL EXAMINATION: GENERAL: The patient is a well-developed, well-nourished white female. Appears her stated age. She is alert and oriented x 3. She is somewhat obese. She is alert and oriented x 3. Her affect is appropriate. Speech is fluent. HEENT: Normocephalic, atraumatic. Extraocular eye muscles intact. Sclerae nonicteric. Mucous membranes are moist. NECK: Without adenopathy or JVD. LUNGS: Clear to auscultation without rhonchi or rales. ABDOMEN: Protuberant. Bowel sounds present. MUSCULOSKELETAL: The patient without significant scoliosis, kyphosis or lordosis. The patient has well-healed scars in the lower portion of her back. Complains of some pain that radiates down into her feet, both with a burning sensation. The patient has had development of hammertoes. Plantar fasciitis type pain and discomfort. IMPRESSION: 1. History of lumbar radiculopathy status post decompressive fusion with three back surgeries. 2. Dorsal column stimulation has been considered. The patient declines. 3. Hypertension. 4. Asthma. RECOMMENDATIONS: We discussed treatment options with the patient. At this juncture, we will continue with her medications. She states that the medications are helpful. States that she is taking them as prescribed. She does not showing any signs of addiction. Keeps her medications in a guarded area. She is taking the medications as prescribed. We will continue with her medications. A script for her medications has been renewed. She will call us if she has any concerns. A script for Adderall 10 mg 1 tablet b.i.d., Valium 5 mg 1 p.o. at bedtime, fentanyl patch 50 mcg q. 48 hours, total of 15 patches have been dispensed per month. Oxycodone 10/325 one p.o. q.i.d. and gabapentin 800 mg 1 p.o. t.i.d. The patient will call us if she has any concerns. We would like to thank you for letting us participate in her care. We hope she continues to improve. By: [id number]. Manjinder Palma MD /PMT
== END ==
LOC: M.PC 04:52
DX: M54.16 Radiculopathy, lumbar region (principal); I10 Essential (primary) hypertension; J45.909 Unspecified asthma, uncomplicated; Z79.899 Other long term (current) drug therapy

== ENCOUNTER → 2019-09-21 | Outpatient (CLI) | payer OTHER ==
[~2019-09-21] MED LIST changes: +CELEBREX 200 M200 M1 PO
--- NOTE | 2019-09-22 09:09 | PAINCON ---
[facility] [address] [place] [address] PAIN MANAGEMENT CONSULTATION Name: CHERYL DOWNING Room: [facility] Quinn#: [id number] Admission: 09/21/19 Attend Phys: Gee Palma MD Discharge: Date of : 65 Report #: [id number] THIS REPORT FOR: //name// CC: Fransico Palma DATE OF SERVICE: 09/21/2019 CHIEF COMPLAINT: Here for medication renewal. HISTORY: The patient is a 53-year-old female who has been followed in the pain clinic because of chronic pain. As you may recall, she has a history of chronic pain. She returns today with low back pain and has had pain down in both feet, left greater than right. She has been seen by a box shook patcher. As you may recall, she also has had 3 back surgeries. She continues to find that the pain in the low back area and down her legs is problematic. Notes that the cold weather, walking, sitting, standing, climbing stairs can be problematic. The patient still declines the use of a dorsal column stimulator at this juncture. She feels that her medications continue to be helpful and has returned today with the hopes of having these medications renewed. She continues with some problems with plantar fasciitis. ALLERGIES: PENICILLIN. CURRENT MEDICATIONS: Tylenol Extra Strength 500 mg q. 6 hours, albuterol 2 puffs q. 4 hours, Adderall 10 mg b.i.d., Tegretol-XR 200 mg b.i.d., Celexa 20 mg, Valium 5 mg at bedtime, fentanyl patch 50 mcg transdermal, Neurontin 800 mg, oxycodone 10/325 one p.o. q. 4-6 hours, MiraLax 225 mg x 17 grams for stool softener, Zanaflex 4 mg, Celebrex 200 mg, Sennosides/Docusate. PAIN CLINIC ASSESSMENT AND PQRS: 1. The patient is not being treated for osteoarthritis or rheumatoid arthritis. She has had 3 back surgeries. She does have plantar fasciitis problems. 2. Vital Signs: Blood pressure is 136/78, heart rate 88, respiratory rate 16, room air saturation 92%, temperature 98.1. Height 5 feet 6 inches, weight 254 pounds, BMI is 41.3. 3. Fall history: The patient has not fallen in the last 3 months. 4. Blood thinner. The patient is not on a blood thinning medication. 5. Pain intensity 5/10. 6. Opioids. The patient receives medication from [facility] the pain clinic. 7. Risk assessment tool, low for opioid use. 8. Functional assessment tool. 10. Recreational drug use. The patient denies. 11. Tobacco: The patient denies use of tobacco. 12. Alcohol: The patient [place] [address] PAIN MANAGEMENT CONSULTATION Name: CHERYL DOWNING ANGELIQUE [id number] Admission: 09/21/19 Attend Phys: Gee Palma MD Discharge: Date of : 65 Report #: [id number] PHYSICAL EXAMINATION: GENERAL: The patient is a well-developed, well-nourished white female. Appears her stated age. She is somewhat obese. She is alert and oriented x 3. Her affect is appropriate. HEENT: Normocephalic, atraumatic. Extraocular eye muscles intact. Sclerae nonicteric. Mucous membranes are moist. NECK: Without adenopathy or JVD. HEART: Regular rate. LUNGS: Clear to auscultation. ABDOMEN: Nontender, protuberant. MUSCULOSKELETAL: Without significant scoliosis, kyphosis or lordosis. The patient has a well-healed scar in the lower portion of her back. Complains of pain that radiates down into her feet. Has burning sensation in her feet. The patient has had hammertoes and plantar fasciitis, pain and discomfort improved. IMPRESSION: 1. History of lumbar radiculopathy, status post 3 decompressive back surgeries. 2. Dorsal column stimulation has been considered in the past. The patient declines. 3. Hypertension. 4. Asthma. RECOMMENDATIONS: We discussed treatment options with the patient. At this juncture, we will continue with her current medical regimen. A script for Adderall 10 mg 1 p.o. b.i.d. has been written. The patient will also continue with Valium 5 mg at bedtime. She has been given a prescription for fentanyl patches 50 mcg 1 p.o. q. 48 hours and Percocet 10/325 one p.o. t.i.d. We would like to thank you for letting us participate in her care. We hope she continues to improve. <ELECTRONICALLY SIGNED> By: Gee Palma MD 09/22/19 0909 [id number]. Manjidner Palma MD /nt
== END ==
LOC: M.PC 05:25
DX: J45.909 Unspecified asthma, uncomplicated (principal); I10 Essential (primary) hypertension; M54.16 Radiculopathy, lumbar region; Z88.0 Allergy status to penicillin; Z79.899 Other long term (current) drug therapy

== ENCOUNTER → 2019-11-16 | Outpatient (CLI) | payer OTHER ==
--- NOTE | 2019-11-30 14:48 | PAINCON ---
[facility] [address] [place] [address] PAIN MANAGEMENT CONSULTATION Name: DOWNINGCHERYLIRIS MERINO [id number] Admission: 11/16/19 Attend Phys: Gee Palma MD Discharge: Date of : 65 Report #: [id number] THIS REPORT FOR: //name// CC: Fransico Palma DATE OF SERVICE: 11/16/2019 PRIMARY CARE PHYSICIAN: Dr. Fransico Inman. CHIEF COMPLAINT: "Continued low back pain and my medicines are helpful." HISTORY: The patient is a 53-year-old female who has been followed in the pain clinic. As you may recall, she has a history of chronic pain. She has pain in her low back area. She has pain down in both feet. Feels that the current medication regimen is helpful. She has had back surgeries on 3 occasions. Continues to have pain in her legs. Notes that the cold weather that we have been has caused some escalation of her pain. She had been approached in the past with consideration of a dorsal column stimulator. She has declined that treatment course at this point. Has had problems with plantar fasciitis. ALLERGIES: PENICILLIN. CURRENT MEDICATIONS: Tramadol Extra Strength 500 mg, albuterol 2 puffs q.4-6 hours, Adderall 10 mg b.i.d., Tegretol XR 200 mg b.i.d., Celexa 20 mg, Valium 5 mg at bedtime, fentanyl patch 50 mcg transdermal, Neurontin 800 mg, oxycodone 10/325 one p.o. q.4-6 hours, MiraLax 225 mg, Zanaflex 4 mg, Celebrex 200 mg, sennosides p.r.n. PAIN CLINIC ASSESSMENT AND PQRS: 1. The patient is not being treated for osteoarthritis or rheumatoid arthritis. She has had back surgery on three occasions. Does complain of some problems with plantar fasciitis. 2. Height 5 feet 6 inches, weight 255 pounds, BMI is 41. 3. Vital signs: Blood pressure 152/99, heart rate 99, respiratory rate 16, room air saturation 97%, temperature 98.4. 4. Pain intensity 03/10. 5. Fall history: The patient has not fallen in the last 3 months. 6. Blood thinner. The patient is not on a blood thinning medication. 7. Hypertension. The patient is not being treated for hypertension. 8. Opioids. [facility]. 9. Risk assessment tool, low for opioid use. 10. Functional assessment tool. 11. Recreational drug use: The patient denies. 12. Tobacco: [place] [address] PAIN MANAGEMENT CONSULTATION Name: CHERYL DOWNING ANGELIQUE Room: [facility]#: [id number] Admission: 11/16/19 Attend Phys: Gee Palma MD Discharge: Date of : 65 Report #: [id number] 13. Alcohol: The patient denies use of alcoholic beverages. PHYSICAL EXAMINATION: GENERAL: The patient is a well-developed, well-nourished, somewhat obese white female, appears her stated age. She is alert and oriented x 3. Her affect is appropriate. Speech is fluent. HEENT: Normocephalic, atraumatic. Extraocular eye muscles intact. Sclerae nonicteric. The patient is unaccompanied. NECK: Without adenopathy or JVD. HEART: Regular rate. LUNGS: Clear to auscultation. ABDOMEN: Nontender, protuberant. MUSCULOSKELETAL: Without significant scoliosis, kyphosis or lordosis. The patient has a well-healed scar in the lower portion of her back. Complains of pain that radiates down into her feet. Has a burning sensation in her feet. Has had hammertoes and plantar fasciitis pain. IMPRESSION: 1. History of lumbar radiculopathy, status post 3 decompressive lumbar surgeries. 2. Dorsal column stimulation declined at this juncture. 3. Hypertension. 4. Asthma. RECOMMENDATIONS: We discussed treatment options with the patient. She is aware that opioid medications can be helpful. She is aware that they can become less effective as time goes on. We had numerous occasions where we talked about the risks and benefits of opioid medications. For some patients, they can be problematic. She has not shown any signs of addiction. She has taken the medication as prescribed. States she keeps her medications in a guarded area. Feels that these medications are helpful in enabling her to remain as active during the day with activities as she is. She would have less activity without their use. She is not having any problems with mental sedation. Feels overall that 50% of her pain is improved by 50% with use of these medications. She is able to walk, stand, climbs stairs and do other activities. She find it hard pressed to do without their use. At this juncture, she will continue with her medications. A script for her medications has been rewritten. She will continue with Adderall 10 mg 1 p.o. b.i.d., Valium 5 mg 1 p.o. at bedtime, Percocet 10/325 one p.o. t.i.d., Duragesic 50 mcg transdermal 1 p.o. q.48 hours. The patient will call us if she has any concerns. [facility] [address] [facility] [place] [address] PAIN MANAGEMENT CONSULTATION Name: CHERYL DOWNING ANGELIQUE Room: [facility]#: [id number] Admission: 11/16/19 Attend Phys: Gee Palma MD Discharge: Date of : 65 Report #: [id number] We would like to thank you for letting us participate in her care. We hope she continues to improve. <ELECTRONICALLY SIGNED> By: Gee Palma MD 11/30/19 1448 [id number]. Manjinder Palma MD /nt
== END ==
LOC: M.PC 04:57
DX: M54.16 Radiculopathy, lumbar region (principal); J45.909 Unspecified asthma, uncomplicated; I10 Essential (primary) hypertension; Z88.0 Allergy status to penicillin; Z79.899 Other long term (current) drug therapy; Z79.891 Long term (current) use of opiate analgesic

== ENCOUNTER → 2020-01-11 | Outpatient (CLI) | payer OTHER ==
[~2020-01-11] MED LIST changes: +NARCAN4 MG NARES
--- NOTE | 2020-01-14 08:24 | PAINCON ---
[address] [address] PAIN MANAGEMENT CONSULTATION Name: CHANGCHERYL ANGELIQUE Room: [facility] Ball#: [id number] Admission: 01/11/20 Attend Phys: Gee Palma MD Discharge: Date of : 65 Report #: [id number] THIS REPORT FOR: //name// cc: Shelton Moyer Vincent R. DO THIS REPORT FOR: //name// CC: Gee Moyer DO DATE OF SERVICE: 01/11/2020 CHIEF COMPLAINT: Chronic low back and arthritic pain. HISTORY: The patient is a 54-year-old female who has been followed in the pain clinic because of chronic pain. This has been ongoing for a number of years. It involves her low back. She complains of pain that radiates down into both feet. She feels that her medication is helpful. She has had back surgery. Has failed back surgery symptomatology. Has had back surgery on three occasions. Continues to have pain down in her legs. Notes that the change in the weather has caused some increased pain and discomfort. Rates her pain today as 6/10. She feels overall that things are about 50% improved with her medications. Activities such as walking, sitting, standing, climbing stairs and other activities can exacerbate her pain. The cold weather has been more problematic. She feels that hot and cold applied to her back on occasion can be helpful as well. She has returned today with the hopes of renewing her medications. She does not have any problems with the medications. She does have a history of plantar fasciitis. As you may recall, she has been given the option of a dorsal column stimulator. At this juncture, she does not feel that is the direction in which she would like to go. ALLERGIES: PENICILLIN. CURRENT MEDICATIONS: Tramadol Extra Strength 500 mg, albuterol 2 puffs q.4 hours p.r.n., Adderall 10 mg b.i.d., Tegretol-XR 200 mg b.i.d., Celexa 20 mg, Valium 5 mg at bedtime, fentanyl patches 50 mcg transdermal, Neurontin 800 mg, oxycodone 10/325 one p.o. q.4-6 hours p.r.n., MiraLax 225 mg, Zanaflex 4 mg, Celebrex 200 mg, sennosides p.r.n. PAIN CLINIC ASSESSMENT AND PQRS: 1. The patient is not being treated for osteoarthritis or rheumatoid arthritis. She has had back surgery on three occasions. Complains of pain and discomfort with plantar fasciitis. She is not being treated for rheumatoid arthritis. 2. Height 5 feet 5 inches, weight 252 pounds, BMI is 40, blood pressure 153/101, heart rate 94, respiratory rate 16, room air saturation 97%, [place] [address] PAIN MANAGEMENT CONSULTATION Name: CHERYL DOWNING ANGELIQUE Room: [facility]#: [id number] Admission: 01/11/20 Attend Phys: Gee Palma MD Discharge: Date of : 65 Report #: [id number] temperature 98.4. 3. Pain intensity is 6/10. 4. Fall history: The patient has not fallen in the last 3 months. 5. Blood thinner. The patient is not on a blood thinning medication. 6. Hypertension. The patient is not being treated for hypertension. 7. Opioids greater than 6 weeks. The [facility]. 8. Risk assessment tool, low for opioid use. 9. Functional assessment tool. 10. Recreational drug use. The patient denies use of recreational drugs. 11. Tobacco: The patient denies use of recreational drugs. 12. Alcohol: The patient denies frequent use of alcoholic beverages. PHYSICAL EXAMINATION: GENERAL: The patient is a well-developed, well-nourished white female. Appears her stated age. She is alert and oriented x 3. Her affect is appropriate. Speech is fluent. The patient is slightly obese. HEENT: Normocephalic, atraumatic. Extraocular eye muscles intact. Sclerae are nonicteric. Mucous membranes are moist. NECK: Without adenopathy or JVD. HEART: Regular rate. ABDOMEN: Nontender. LUNGS: Generally clear to auscultation. EXTREMITIES: Upper extremity muscle strength judged to be 5/5 for the major muscle groups in the upper extremity. The patient without significant scoliosis, kyphosis or lordosis. Has a well-healed scar in the lower portion of her back. Complains of pain that radiates down into her feet. Has a burning sensation in her feet. Has had hammertoes and plantar fasciitis pain. IMPRESSION: 1. History of lumbar radicular pain status post 3 decompressive laminectomies. 2. Dorsal column stimulator option, declined at this juncture. 3. Hypertension. 4. Asthma. RECOMMENDATIONS: We discussed treatment options with the patient. The risks and benefits of opioid use were discussed. The patient is aware that opioid medications can be helpful in some people. They can become less effective as time goes on, secondary to development of tolerance. The patient feels overall that her medications are helpful. She feels that the fentanyl patches provide long-term benefit and the hydrocodone tablets can be helpful with breakthrough pain. She has taken the medication as prescribed. She is having no complication from their use. She would like to continue their use. She is aware that opioid medications in some patients can become problematic and develop addiction. She has not shown any addictive behaviors. She feels that her medications are not causing significant amounts of sedation[place] [address] PAIN MANAGEMENT CONSULTATION Name: CHERYL DOWNING ANGELIQUE Room: [facility]#: [id number] Admission: 01/11/20 Attend Phys: Gee Palma MD Discharge: Date of : 65 Report #: [id number] think clearly. She has been provided a script for her medications. She will continue with the Adderall 10 mg 1 p.o. b.i.d. The patient will continue with Valium 5 mg 1 p.o. at bedtime. The patient finds the Percocet 10 mg 1 p.o. t.i.d. is helpful. She will continue with transdermal Duragesic patches every 48 hours. She will call us if she has any concerns. We would like to thank you for letting us participate in her care. We hope she continues to improve. <ELECTRONICALLY SIGNED> By: Gee Palma MD 01/14/20 0824 [id number] [id number]. MD tanesha Hurd
== END ==
LOC: M.PC 08:00
DX: M54.5 Low back pain (principal); G89.29 Other chronic pain; I10 Essential (primary) hypertension; J45.909 Unspecified asthma, uncomplicated; Z88.0 Allergy status to penicillin

== ENCOUNTER → 2020-03-07 | Outpatient (CLI) | payer OTHER ==
--- NOTE | 2020-03-08 08:28 | PAINCON ---
[address] [address] PAIN MANAGEMENT CONSULTATION Name: CHANGCHERYL Rajani Room: [facility]#: [id number] Admission: 03/07/20 Attend Phys: Gee Palma MD Discharge: Date of : 65 Report #: [id number] THIS REPORT FOR: //name// cc: Fransico Inman MD, David L. MD ~ THIS REPORT FOR: //name// CC: Fransico Palma DATE OF SERVICE: 03/07/2020 PRIMARY CARE PHYSICIAN: Fransico Inman MD CHIEF COMPLAINT: Continued low back pain with arthritis in the feet. HISTORY: The patient is a 54-year-old female who has been followed in the pain clinic because of chronic pain. She complains of pain in the low back area. She also has some problems with her feet. States that her arthritis has increased in her feet. Notes that pain is more problematic with certain activities. Temperature changes of hot to cold weather are problematic. The patient notes some increased discomfort with walking, sitting, standing, bending and lifting. She feels that her medications continue to be helpful. She has taken the medication as prescribed. She has had back surgery on 3 occasions. Continues to complain of pain that radiates down into her legs. Her history of plantar fasciitis still remains problematic. The option of a dorsal column stimulator has been provided in the past. At this juncture, she would like to continue with her conservative approach. ALLERGIES: PENICILLIN. CURRENT MEDICATIONS: Tramadol Extra Strength 500 mg, albuterol 2 puffs q.4 hours, Adderall 10 mg b.i.d., Tegretol-XR 200 mg b.i.d., Celexa 20 mg, Valium 5 mg at bedtime, fentanyl patches 50 mcg, Neurontin 800 mg, oxycodone 10 mg one p.o. q. 4-6 hours, MiraLax 225 mg, Zanaflex 4 mg, Celebrex 200 mg, sennosides p.r.n. PAIN CLINIC ASSESSMENT AND PQRS: 1. The patient is not being treated for osteoarthritis or rheumatoid arthritis. She has had back surgeries on 3 occasions. Complains of pain and discomfort with plantar fasciitis. She is not being treated for rheumatoid arthritis. 2. Height 5 feet 6 inches, weight 244 pounds, BMI is 39. 3. Vital signs: Blood pressure 142/105, heart rate 89, respiratory rate 16, room air saturation 97%, temperature is 97.7, second blood pressure 141/67. 4. Pain intensity 5/10. 5. Fall history: The patient has not fallen in the last 3 [place] [address] PAIN MANAGEMENT CONSULTATION Name: CHERYL DOWNING Rajani Room: [facility]#: [id number] Admission: 03/07/20 Attend Phys: Gee Palma MD Discharge: Date of : 65 Report #: [id number] 6. Blood thinner. The patient is not on a blood thinning medication. 7. Hypertension. The patient is not being treated for hypertension. 8. Opioids greater than 6 weeks. The [facility]. 9. Risk assessment tool, low for opioids. 10. Functional assessment tool. 11. Recreational drug use: The patient denies. 12. Tobacco: The patient denies use of recreational drugs. 13. Alcohol. The patient denies frequent use of alcoholic beverages. PHYSICAL EXAMINATION: GENERAL: The patient is a well-developed, well-nourished white female. Appears her stated age. She is alert and oriented x 3. Her affect is appropriate. Speech is fluent. HEENT: Normocephalic, atraumatic. Extraocular eye muscles intact. The patient is slightly obese. NECK: Without adenopathy or JVD. HEART: Regular rate. ABDOMEN: Nontender. LUNGS: Generally clear to auscultation. EXTREMITIES: Upper extremity muscle strength judged to be 5/5 for the major muscle groups in the upper extremity. MUSCULOSKELETAL: The patient without significant scoliosis, kyphosis or lordosis: The patient has a well-healed scar in the lower portion of her back. Complains of pain that radiates down into her feet. Complains of burning sensation and soreness in her feet. The patient has a history of hammertoes and plantar fasciitis. IMPRESSION: 1. History of lumbar radicular pain status post 3 decompressive laminectomies. 2. Dorsal column stimulator option declined, the patient first to continue on a conservative approach. 3. Hypertension. 4. Asthma. RECOMMENDATIONS: We discussed treatment options with the patient. At this juncture, we will continue with her current medical regimen. The risks and benefits of opioid medications were again discussed. The patient feels her medications continue to be helpful and able her to engage in activities she would probably be unable to without their use. She is aware that opioids can be problematic. She is aware that opioid use can lead to development of tolerance. She feels that the medications continue to be helpful. They enable her to stay active. We will continue with her medications. A script for the medication have been renewed. The patient will continue with oxycodone 10 mg 1 p.o. t.i.d., 2 months of this medication has been provided. The patient will continue with the fentanyl patch 50 mcg 15 patches to be changed q. [address] [place] [address] PAIN MANAGEMENT CONSULTATION Name: CHERYL DOWNING Room: [facility]#: [id number] Admission: 03/07/20 Attend Phys: Gee Palma MD Discharge: Date of : 65 Report #: [id number] The patient will also continue with Valium 5 mg 1 p.o. at bedtime, total of 30 tablets. The patient will also continue with Adderall 10 mg tablets 1 p.o. b.i.d., total of 60 tablets per month. She will continue with Celexa 20 mg at bedtime. The patient will also continue with gabapentin 800 mg 1 p.o. t.i.d. The patient will use Zanaflex for muscle relaxation. A total of 150 tablets up to 5 tablets daily. We would like to thank you for letting us participate in her care. We hope she continues to improve. <ELECTRONICALLY SIGNED> By: Gee Palma MD 03/08/20 0828 1323 1343N. Manjinder Palma MD /[facility]
== END ==
LOC: M.PC 04:54
DX: M54.5 Low back pain (principal); M13.879 Other specified arthritis, unspecified ankle and foot; J45.909 Unspecified asthma, uncomplicated; F11.20 Opioid dependence, uncomplicated; I10 Essential (primary) hypertension; Z87.39 Personal history of other diseases of the musculoskeletal system and connective tissue; Z88.0 Allergy status to penicillin; Z79.899 Other long term (current) drug therapy; Z79.84 Long term (current) use of oral hypoglycemic drugs

== ENCOUNTER → 2020-05-02 | Outpatient (CLI) | payer OTHER ==
--- NOTE | 2020-05-17 08:41 | PAINCON ---
[address] [address] PAIN MANAGEMENT CONSULTATION Name: DOWNINGCHERYL Rajani [id number] Admission: 05/02/20 Attend Phys: Gee Palma MD Discharge: Date of : 65 Report #: [id number] THIS REPORT FOR: //name// cc: Shelton Moyer Vincent R. DO ~ THIS REPORT FOR: //name// CC: MD Gee Love DATE OF SERVICE: 05/02/2020 CHIEF COMPLAINT: Low back pain. HISTORY: The patient is a 54-year-old female who has been followed in the pain clinic. She has pain in her low back area. This has been problematic for a number of years. She also notes increased discomfort with activities, which increase her pain. Notes increased pain in the buttocks area. Has pain in her hips. She was taking Celexa. She has stopped this secondary to weight gain. She feels her pain is about 50% improved with her current medical regimen. She rates it as a 5/10. Feels that the fentanyl and Percocet are helpful. Notes that activity, walking, sitting, standing, climbing stairs, bending and lifting can be problematic. She has noted some improvement in her pain and discomfort when she uses heat as well as cold. She has returned today for renewal of her medications. She feels overall that her medication regimen is helpful and enable her to be more active. ALLERGIES: PENICILLIN. CURRENT MEDICATIONS: Tramadol Extra Strength 500 mg, albuterol 2 puffs q.4 hours, Adderall 10 mg b.i.d., Tegretol-XR 200 mg b.i.d., Celexa, Valium 5 mg at bedtime, fentanyl patches 50 mcg, Neurontin 800 mg, oxycodone 10 mg 1 p.o. q.4 hours p.r.n., MiraLax 225 mg, Zanaflex 4 mg, Celebrex 200 mg, sennosides p.r.n. PAIN CLINIC ASSESSMENT AND PQRS: 1. The patient is not being treated for osteoarthritis or rheumatoid arthritis. 2. She has had back surgeries on 3 occasions. Continues to have pain and discomfort with plantar fasciitis. She is not being treated for rheumatoid arthritis. 3. Height 5 feet 6 inches, weight 242 pounds, BMI is 40. 4. Vital signs: Blood pressure 139/96, heart rate 95, respiratory rate 18, room air saturation 96%, temperature 97. 5. Pain intensity is 5/10. 6. Fall history. The patient has not fallen in the last 3 months. 7. Blood thinner. The patient is not on a blood [place] [address] PAIN MANAGEMENT CONSULTATION Name: VICTOR HUGO DOWNINGIRIS Gerard Room: [facility]#: [id number] Admission: 05/02/20 Attend Phys: Gee Palma MD Discharge: Date of : 65 Report #: [id number] 8. Hypertension. The patient is not being treated for hypertension. 9. Opioids greater than 6 weeks. The [facility]. 10. Risk assessment tool, low for opioid use. 11. Functional assessment tool. 12. Recreational drug use. The patient denies. 12. Tobacco. The patient denies use of recreational drugs. 13. Alcohol. The patient denies frequent use of alcoholic beverages. PHYSICAL EXAMINATION: GENERAL: The patient is a well-developed, well-nourished, white female. Appears her stated age. She is alert and oriented x 3. Her affect is appropriate. Speech is fluent. HEENT: Normocephalic, atraumatic. Extraocular eye muscles intact. Sclerae nonicteric. The patient is slightly obese. NECK: Without adenopathy or JVD. HEART: Regular rate. ABDOMEN: Nontender. LUNGS: Generally clear to auscultation. EXTREMITIES: Upper extremity muscle strength judged to be 5/5 for the major muscle groups in the upper extremity. Lower extremity muscle examination, the patient without significant scoliosis, kyphosis or lordosis. The patient has a well-healed scar in the lower portion of her back. Complains of pain that radiates down into her feet. Complains of burning sensation and soreness in her feet. The patient has a history of hammertoes and plantar fasciitis. IMPRESSION: 1. History of lumbar radicular pain, status post 3 decompressive lumbar laminectomies. 2. Dorsal column stimulator decline. The patient would like to continue with conservative approach. 3. Hypertension. 4. Asthma. RECOMMENDATIONS: We discussed treatment options with the patient. Risks and benefits of opioid medications again have been reviewed. The patient is aware that these medications can become less effective as time goes on. She takes her medication as prescribed. Keeps her medications in a guarded area. She feels she is about 50% improved with her medications. Given that she has had 3 back surgeries, she is not interested in another surgery. She is reluctant to undergo spinal cord stimulator at this time. She would like to continue with a conservative approach in use of medications. A script for her medications has been rewritten. She will continue with fentanyl patches 50 mcg changed q.48 hours. She will also continue with oxycodone 10 mg 1 p.o. t.i.d. The patient will use Valium at bedtime to help with muscle spasms. She will also continue with Adderall. She will call us if she has any concerns [place] [address] PAIN MANAGEMENT CONSULTATION Name: CHANGCHERYL Rajani Room: [facility]#: [id number] Admission: 05/02/20 Attend Phys: Gee Palma MD Discharge: Date of : 65 Report #: [id number] We would like to thank you for letting us participate in her care. We hope she continues to improve. The patient has been provided with a naloxone spray should respiratory problems become problematic in the future. <ELECTRONICALLY SIGNED> By: Gee Palma MD 05/17/20 0841 [id number]. Manjinder Palma MD /[facility]
== END ==
LOC: M.PC 04:52
PROVIDERS: ATTEND Anesthesiology Pain Medicine
DX: M54.5 Low back pain (principal); I10 Essential (primary) hypertension; J45.909 Unspecified asthma, uncomplicated; M96.1 Postlaminectomy syndrome, not elsewhere classified

== ENCOUNTER → 2020-06-27 | Outpatient (CLI) | payer OTHER ==
--- NOTE | 2020-06-28 09:00 | PAINCON ---
[address] [address] PAIN MANAGEMENT CONSULTATION Name: DOWNINGCHERYL [id number] Admission: 06/27/20 Attend Phys: Gee Palma MD Discharge: Date of : 65 Report #: [id number] THIS REPORT FOR: //name// cc: Shelton Moyer Vincent R. DO ~ THIS REPORT FOR: //name// CC: Gee Moyer DATE OF SERVICE: 06/27/2020 CHIEF COMPLAINT: Pain in the left low back area with pain that continues to go down into the left leg and pain in the lower back. HISTORY: The patient is a 54-year-old female who has been followed in the pain clinic because of chronic pain. She has had pain for many years. She has noticed that her pain reasonably stable at this juncture, since we saw her last time. Does note there is pain in the lower portion of her back that radiates down into her hips. The left side is more problematic today. She rates it as a 4/10. She feels that the fentanyl patches and Percocet medications are helpful. She does note that activities can make things more problematic. Walking, sitting, standing, climbing, bending and lifting can be problematic. She feels overall that her medications are working reasonably well. She is not having any complications. She is staying home because of the COVID-19 pandemic. She would like to have her medications renewed. ALLERGIES: PENICILLIN. CURRENT MEDICATIONS: Tramadol Extra Strength 500 mg, albuterol 2 puffs q.4 hours, docusate, fentanyl patch 50 mcg q. 72 hours, oxycodone 10/325 one p.o. t.i.d., Adderall 10 mg b.i.d., tizanidine 4 mg t.i.d. p.r.n. muscle spasms. The patient has received a naloxone spray in the past, albuterol inhaler, acetaminophen 500 mg, MiraLax p.r.n., diazepam 5 mg at bedtime, gabapentin 800 mg t.i.d., Celebrex 200 mg 1 p.o. daily. PAIN CLINIC ASSESSMENT AND PQRS: 1. The patient is not being treated for osteoarthritis or rheumatoid arthritis. She has had back surgery on 3 occasions. Continues to have pain and discomfort in the low back area with pain radiating down in her buttocks on the left side involving her left leg. She is not being treated for rheumatoid arthritis. 2. Height 5 feet 6 inches, weight 236 pounds, BMI is 37.9. 3. Vital Signs: Blood pressure 146/90, heart rate 87, respiratory rate 20, room air saturation 97%, temperature 97.9. 4. Pain intensity 4/10. 5. Fall history: The patient has not fallen [place] [address] PAIN MANAGEMENT CONSULTATION Name: DOWNINGCHERYL Room: [facility]#: [id number] Admission: 06/27/20 Attend Phys: Gee Palma MD Discharge: Date of : 65 Report #: [id number] 6. Blood thinner. The patient is not on a blood thinning medication. 7. Hypertension. The patient is being treated for hypertension. 8. Opioids greater than 6 weeks. The patient received medication from the pain clinic. 9. Risk assessment tool, low for opioid use. 10. Functional assessment tool reviewed. 11. Recreational drug use. The patient denies. 12. Tobacco: The patient denies. 13. Alcohol. The patient denies frequent use of alcoholic beverages. PHYSICAL EXAMINATION: GENERAL: The patient is a well-developed, well-nourished white female. Appears her stated age. She is alert and oriented x 3. Her affect is appropriate. Speech is fluent. HEENT: Normocephalic, atraumatic. Extraocular eye muscles intact. Sclerae nonicteric. Mucous membranes are moist. The patient is slightly obese. NECK: Without adenopathy or JVD. The patient is wearing a mask. HEART: Regular rate. ABDOMEN: Nontender. LUNGS: Clear to auscultation. EXTREMITIES: Upper extremity muscle strength judged to be 5-/5 for the major muscle groups in the upper extremity. Lower extremity, the patient without significant scoliosis, kyphosis or lordosis. The patient has a well-healed scar in the midline portion of her back. Complains of pain that radiates down into her left buttocks, posterior leg and down to her foot. Complains of burning sensation in her feet. The patient has history of plantar fasciitis. IMPRESSION: 1. History of lumbar radicular pain, status post 3 decompressive lumbar laminectomies. 2. Dorsal column stimulator decline. The patient would like to continue with her conservative approach. 3. Hypertension. The patient is being treated for hypertension. 4. Asthma, stable. RECOMMENDATIONS: We discussed treatment options with the patient. At this juncture, we will continue with her medications. The patient still feels medications are helpful. She is aware that opioid medications can become less effective as time goes on. She keeps her medications in a guarded area. She is showing no signs of addiction. She is aware that opioid medications involved in the of numerous people because of over use of medications. The patient feels that the Valium helps with the muscle spasms at night. She will also continue with Adderall. She will call us if [place] [address] PAIN MANAGEMENT CONSULTATION Name: CHERYL DOWNING Room: [facility]#: [id number] Admission: 06/27/20 Attend Phys: Gee Palma MD Discharge: Date of : 65 Report #: [id number] We would like to thank you for letting us participate in her care. We hope she continues to improve. <ELECTRONICALLY SIGNED> By: Gee Palma MD 06/28/20 0900 [id number] [id number]. Manjinder Palma MD /[facility]
== END ==
LOC: M.PC 05:08
PROVIDERS: ATTEND Anesthesiology Pain Medicine
DX: M54.5 Low back pain (principal); M79.605 Pain in left leg; M96.1 Postlaminectomy syndrome, not elsewhere classified; I10 Essential (primary) hypertension; J45.909 Unspecified asthma, uncomplicated; Z88.0 Allergy status to penicillin; Z79.899 Other long term (current) drug therapy

== ENCOUNTER → 2020-08-22 | Outpatient (CLI) | payer OTHER ==
--- NOTE | 2020-08-24 08:38 | PAINCON ---
[address] [address] PAIN MANAGEMENT CONSULTATION Name: DOWNINGCHERYL Rajani Room: [facility] Quinn#: [id number] Admission: 08/22/20 Attend Phys: Gee Palma MD Discharge: Date of : 65 Report #: [id number] THIS REPORT FOR: //name// cc: Shelton Moyer Vincent R. DO THIS REPORT FOR: //name// CC: Gee Moyer DATE OF SERVICE: 08/22/2020 PRIMARY CARE PHYSICIAN: Dr. Shelton Moyer CHIEF COMPLAINT: "Here for medications. My pain has increased on the right side." HISTORY: The patient is a 54-year-old female. She has been followed in the pain clinic because of pain and discomfort involving her low back. She continues to have pain that radiates down into the left leg. She is having some pain and discomfort on the right side today. She feels overall that her medications are helpful. She rates her pain as a 6/10. Notes that the right ball in her hip seems to have been more problematic. This started in May. At this point, she has returned for renewal of her medications. She feels that the medications are helpful. She does not have any problems with their use. She would like to continue with the medications. She notes that her pain is worse with certain activities such as sitting, standing, climbing stairs, walking, bending and lifting. Use of her medications is helpful. Rest is helpful. ALLERGIES: PENICILLIN. CURRENT MEDICATIONS: Tramadol Extra Strength 500 mg, albuterol 2 puffs q. 4-6 hours, docusate, fentanyl patch 50 mcg q. 72 hours, oxycodone 10/325 one p.o. t.i.d., Adderall 10 mg b.i.d., tizanidine 4 mg t.i.d., muscle spasm. The patient has received a naloxone spray in the past, albuterol inhaler, acetaminophen 500 mg, MiraLax p.r.n., diazepam 5 mg, gabapentin 800 mg t.i.d., Celebrex 200 mg 1 p.o. daily. PAIN CLINIC ASSESSMENT AND PQRS: 1. The patient is not being treated for osteoarthritis or rheumatoid arthritis. She has had back surgeries on 3 occasions. She continues to have pain and discomfort in low back area with pain radiating down to the buttocks on the left side and involving her left leg. She is not being treated for rheumatoid arthritis. 2. Height 5 feet 6 inches, weight 235 pounds, BMI is 38. 3. Vital signs: Blood pressure 130/75, heart rate 84, respiratory rate 18, [place] [address] PAIN MANAGEMENT CONSULTATION Name: CHERYL DOWNING Room: [facility]#: [id number] Admission: 08/22/20 Attend Phys: Gee Palma MD Discharge: Date of : 65 Report #: [id number] room air saturation 96%, temperature 97.4. 4. Pain intensity 6/10. 5. Fall history: The patient has not fallen in the last 3 months. 6. Blood thinner. The patient is not on a blood thinning medication. 7. Hypertension. The patient is being treated for hypertension. 8. Opioids greater than 6 weeks. The patient received medication from the pain clinic. 9. Risk assessment tool, low for opioid use. 10. Functional assessment tool, reviewed. 11. Recreational drug use. The patient denies. 12. Tobacco: The patient denies. 13. Alcohol. The patient denies frequent use of alcoholic beverages. PHYSICAL EXAMINATION: GENERAL: The patient is a well-developed, well-nourished white female. Appears her stated age. She is alert and oriented x 3. Her affect is appropriate. Speech is fluent. HEENT: Normocephalic, atraumatic. Extraocular eye muscles intact. Sclerae nonicteric. Mucous membranes are moist. The patient is wearing a facial covering. NECK: Without adenopathy or JVD. HEART: Regular rate. ABDOMEN: Nontender. LUNGS: Clear. EXTREMITIES: Upper extremity muscle strength judged to be 5-/5 for the major muscle groups in the upper extremity. The patient without significant scoliosis, kyphosis or lordosis. The patient with a well-healed scar in the midline portion of her low back area. The patient complains of pain that radiates down the left buttocks into the posterior portion of her leg and her foot. Also, complains of some burning sensation in her feet. The patient has a history of plantar fasciitis. The patient has noted some pain and discomfort in the right buttocks and in the area of the hip socket per her report. IMPRESSION: 1. History of lumbar radicular pain status post 3 decompressive lumbar laminectomies. 2. Dorsal column stimulator declined. The patient will continue on a conservative approach. 3. Hypertension. The patient is being treated for hypertension. 4. Asthma, stable. RECOMMENDATIONS: We discussed treatment options with the patient. At this juncture, we will continue with her medications. She finds that the medications continue to be helpful. She is able to think clearly. She is aware that the medications will become less effective as time goes on because of development of tolerance. She is aware that some [place] [address] PAIN MANAGEMENT CONSULTATION Name: CHERYL DOWNING Room: [facility]#: [id number] Admission: 08/22/20 Attend Phys: Gee Palma MD Discharge: Date of : 65 Report #: [id number] medication and some patients have as a result of overdose. She feels her medications are working well. Keeps them in a guarded area. We would like to thank you for letting us participate in her care. We hope she continues to improve. <ELECTRONICALLY SIGNED> By: Gee Palma MD 08/24/20 0838 [id number]. Manjinder Palma MD /[facility]
== END ==
LOC: M.PC 08:30
PROVIDERS: ATTEND Anesthesiology Pain Medicine
DX: M54.5 Low back pain (principal); M96.1 Postlaminectomy syndrome, not elsewhere classified; I10 Essential (primary) hypertension; J45.909 Unspecified asthma, uncomplicated; Z87.39 Personal history of other diseases of the musculoskeletal system and connective tissue; Z88.0 Allergy status to penicillin; Z79.899 Other long term (current) drug therapy

== ENCOUNTER → 2020-10-17 | Outpatient (CLI) | payer OTHER ==
--- NOTE | 2020-11-02 14:42 | PAINCON ---
[address] [address] PAIN MANAGEMENT CONSULTATION Name: DOWNINGCHERYL [facility] [id number] Admission: 10/17/20 Attend Phys: Gee Palma MD Discharge: Date of : 65 Report #: [id number] THIS REPORT FOR: //name// cc: Shelton Moyer Vincent R. DO ~ CC: Gee Moyer DATE OF SERVICE: 10/17/2020 CHIEF COMPLAINT: Low back and nerve pain down into the toes. HISTORY: The patient is a 54-year-old female who has been followed in the pain clinic because of chronic pain. She has pain involving her right leg. She rates her pain as a 4/10 today. It has been more problematic in the past. She is about 50% improved with her current medical management. She feels that the oxycodone, Valium and fentanyl patches continue to be helpful. She notes that when walking, sitting, standing, climbing, lifting and bending, she has more pain. She notes her pain improving when she rests. She has returned today for renewal of her medications. She is not having any complications from their use. ALLERGIES: PENICILLIN. CURRENT MEDICATIONS: Tramadol Extra Strength 500 mg, albuterol 2 puffs q. 4-6 hours, docusate, fentanyl patch 50 mcg q. 72 hours, oxycodone 10/325 one p.o. t.i.d., Adderall 10 mg b.i.d., tizanidine 4 mg t.i.d. for muscle spasms, albuterol inhaler, acetaminophen 500 mg, MiraLax p.r.n., diazepam 5 mg, gabapentin 800 mg t.i.d., Celebrex 200 mg 1 p.o. daily. PAIN CLINIC ASSESSMENT AND PQRS: 1. The patient is not being treated for osteoarthritis or rheumatoid arthritis. She has had some back surgery on 3 occasions. She continues to have pain and discomfort that radiates down into her back and down into her buttocks involving the left side and into her left leg. She is not being treated for rheumatoid arthritis. 2. Height 5 feet 6 inches, weight 229 pounds, BMI 36. 3. Vital Signs: Blood pressure 139/91, heart rate 110, respiratory rate 16, room air saturation 98%, temperature 97.1. 4. Pain intensity 4/10. 5. Fall history: The patient has not fallen since we saw her last. 6. Blood thinner. The patient is not on a blood thinning medication. 7. Hypertension. The patient is being treated for hypertension. 8. Opioids greater than 6 weeks. The patient receives medication from the pain clinic. 9. Risk assessment tool, low for opioid use. 10. Functional [place] [address] PAIN MANAGEMENT CONSULTATION Name: CHERYL DOWNING Room: [facility]#: [id number] Admission: 10/17/20 Attend Phys: Gee Palma MD Discharge: Date of : 65 Report #: [id number] 11. Recreational drug use: The patient denies. 12. Tobacco: The patient denies. 13. Alcohol. The patient denies frequent use of alcoholic beverages. PHYSICAL EXAMINATION: GENERAL: The patient is a well-developed, well-nourished white female. Appears her stated age. She is alert and oriented x 3. Her affect is appropriate. Speech is fluent. HEENT: Normocephalic, atraumatic. Extraocular eye muscles intact. Sclerae nonicteric. The patient is wearing a facial covering. NECK: Without adenopathy or JVD. HEART: Regular rate. ABDOMEN: Nontender. LUNGS: Clear. EXTREMITIES: Upper extremity muscle strength judged to be 5-/5 for the major muscle groups in the upper extremity. The patient without significant scoliosis, kyphosis or lordosis. The patient has a well-healed scar in the midline area of her low back. She complains of pain that radiates down into her left buttocks and posterior portion of her leg and involves her foot. Has complaints of burning sensation in her feet. Has history of plantar fasciitis. The patient has some pain in the right buttocks in the area of the hip socket. IMPRESSION: 1. History of lumbar radicular pain status post 3 decompressive laminectomies. 2. Dorsal column stimulator decline. The patient continues on conservative approach. 3. Hypertension. The patient is being treated for hypertension. 4. Asthma, stable. RECOMMENDATIONS: We discussed treatment options with the patient. Risks and benefits of opioid medications were again reviewed. The patient is aware that opioid medications can be problematic. She has not shown any signs of addiction. She is aware that tolerance can develop because of frequent use of opioid medications. She feels that the medications continue to be beneficial and enable her to engage in activities, she would have quite a bit of difficulty performing without their use. Rates her pain as a 50% improvement in pain with the current medical regimen. A script for her medications have been rewritten. The patient will continue with fentanyl patches 50 mcg every 72 hours. She will also continue with oxycodone 10/325 one p.o. t.i.d. She will continue with Adderall 10 mg 1 p.o. b.i.d. She will continue with gabapentin 800 mg 1 p.o. t.i.d. The patient will use Valium 1 tablet at bedtime. She will call us if [place] [address] PAIN MANAGEMENT CONSULTATION Name: CHANGCHERYL A Room: [facility]#: [id number] Admission: 10/17/20 Attend Phys: Gee Palma MD Discharge: Date of : 65 Report #: [id number] We would like to thank you for letting us participate in her care. We hope she continues to improve. <ELECTRONICALLY SIGNED> By: Gee Palma MD 11/02/20 1442 [id number] [id number] Palma MD /nt
== END ==
LOC: M.PC 08:02
PROVIDERS: ATTEND Anesthesiology Pain Medicine
DX: M54.5 Low back pain (principal); I10 Essential (primary) hypertension; Z79.899 Other long term (current) drug therapy

== ENCOUNTER → 2020-12-12 | Outpatient (CLI) | payer OTHER | LOC: M.PC 08:00 | PROVIDERS: ATTEND Anesthesiology Pain Medicine | DX: M54.5 Low back pain (principal); M79.605 Pain in left leg; I10 Essential (primary) hypertension; J45.909 Unspecified asthma, uncomplicated; M96.1 Postlaminectomy syndrome, not elsewhere classified; Z87.39 Personal history of other diseases of the musculoskeletal system and connective tissue ==

== ENCOUNTER → 2021-02-06 | Outpatient (CLI) | payer OTHER ==
[~2021-02-06] MED LIST changes: +DIAZEPAM 5 MG5 M1 PO
== END ==
LOC: M.PC 08:08
PROVIDERS: ATTEND Anesthesiology Pain Medicine
DX: M54.5 Low back pain (principal); I10 Essential (primary) hypertension; J45.909 Unspecified asthma, uncomplicated; Z87.39 Personal history of other diseases of the musculoskeletal system and connective tissue

== ENCOUNTER → 2021-04-03 | Outpatient (CLI) | payer OTHER | LOC: M.PC 08:20 | PROVIDERS: ATTEND Anesthesiology Pain Medicine | DX: M54.5 Low back pain (principal); M79.605 Pain in left leg; J45.909 Unspecified asthma, uncomplicated; I10 Essential (primary) hypertension; Z87.39 Personal history of other diseases of the musculoskeletal system and connective tissue ==

== ENCOUNTER → 2021-05-29 | Outpatient (CLI) | payer OTHER | LOC: M.PC 08:53 | PROVIDERS: ATTEND Anesthesiology Pain Medicine | DX: Z76.0 Encounter for issue of repeat prescription (principal); M54.16 Radiculopathy, lumbar region; I10 Essential (primary) hypertension; J45.909 Unspecified asthma, uncomplicated; Z90.49 Acquired absence of other specified parts of digestive tract; Z79.899 Other long term (current) drug therapy; Z88.0 Allergy status to penicillin ==

== ENCOUNTER → 2021-07-17 | Outpatient (CLI) | payer OTHER | LOC: M.PC 08:36 | PROVIDERS: ATTEND Anesthesiology Pain Medicine | DX: M54.16 Radiculopathy, lumbar region (principal); I10 Essential (primary) hypertension; J45.909 Unspecified asthma, uncomplicated; Z79.891 Long term (current) use of opiate analgesic; Z79.899 Other long term (current) drug therapy ==

== ENCOUNTER → 2021-09-11 | Outpatient (CLI) | payer OTHER ==
[~2021-09-11] MED LIST changes: +FENTANYL1 EAC1 TRANSDERM
== END ==
LOC: M.PC 08:26
PROVIDERS: ATTEND Anesthesiology Pain Medicine
DX: M54.16 Radiculopathy, lumbar region (principal); I10 Essential (primary) hypertension; J45.909 Unspecified asthma, uncomplicated; M79.605 Pain in left leg; Z79.899 Other long term (current) drug therapy; Z88.0 Allergy status to penicillin

== ENCOUNTER → 2021-12-04 | Outpatient (CLI) | payer BC ==
[~2021-12-04] MED LIST changes: +NORVASC5 MG PO; +SINGULAIR 10 MG10 M1 PO
== END ==
LOC: M.PC 07:58
PROVIDERS: ATTEND Anesthesiology Pain Medicine
DX: M54.16 Radiculopathy, lumbar region (principal); I10 Essential (primary) hypertension; M79.605 Pain in left leg; J45.909 Unspecified asthma, uncomplicated; Z88.0 Allergy status to penicillin; Z79.899 Other long term (current) drug therapy